=== PATIENT | female | born 1935 | race Caucasian/White ===

== ENCOUNTER → 2016-09-14 | Outpatient (CLI) | payer MEDICARE, OTHER, MEDICAID ==
[~2016-09-14] MED LIST: ALIR1INJ3 SC; BENA20TA4 PO; CHOL400T19 PO; CYAN500L3 PO; FURO40TA PO; GABA300C8 PO; MECL12.554 PO; METO-158 PO; MULTTAB99 PO; NITR0.4S29 SL; NOR5T PO; OMEP20CA5 OR; POTA20TA53 PO; PREMARIN; RIOC1TAB5 PO; SIMV20TA90; VITA400C49 PO; WARF5TAB71 PO; ZOLP-158
[2016-09-14 09:45] VITALS: BP 119/79
[2016-09-14 12:21] LABS: INR 2.3 (0.7-1.3)
[2016-09-14 13:37] LABS: Potassium 4.6 mmol/L (3.5-5.1)
== END | disposition home or self-care (01) ==
LOC: CHF HDHVI 09:11
PROVIDERS: ATTEND Internal Medicine Cardiovascular Disease
DX: I50.9 Heart failure, unspecified (principal); Z79.899 Other long term (current) drug therapy
CPT/HCPCS: 36415; 82565; 84132; 84520; 85610; 93701; G0463

== ENCOUNTER → 2016-10-05 | Outpatient (CLI) | payer MEDICARE, OTHER, MEDICAID ==
[~2016-10-05] MED LIST changes: +CYANOCOBALAMIN (B-12) 1000 MCG/1 ML VIAL IM ONE; +CYANOCOBALAMIN (B-12) 1000 MCG/1 ML VIAL ONE
[2016-10-05 08:35] VITALS: BP 130/72
[2016-10-05 09:35] VITALS: BP 124/69
[2016-10-05 12:22] LABS: INR 1.9 (0.7-1.3); Prothrombin Time 23.2 sec (9.0-12.0)
[2016-10-05 12:42] LABS: BUN/Creatinine Ratio 25.3; Calcium 9.4 mg/dL (8.5-10.1); Magnesium 2.3 mg/dL (1.6-2.6); Potassium 4.4 mmol/L (3.5-5.1)
== END | disposition home or self-care (01) ==
LOC: CHF HDHVI 08:35
PROVIDERS: ATTEND Internal Medicine Cardiovascular Disease
DX: I10 Essential (primary) hypertension (principal); E83.40 Disorders of magnesium metabolism, unspecified; E55.9 Vitamin D deficiency, unspecified
CPT/HCPCS: 36415; 80048; 82306; 83735; 85610; 93701; 96372; G0463

== ENCOUNTER → 2016-10-12 | Outpatient (CLI) | payer MEDICARE, OTHER, MEDICAID ==
[2016-10-12 08:30] VITALS: BP 131/74
[2016-10-12 08:43] VITALS: BP 135/64
[2016-10-12 09:47] LABS: INR 2.2 (0.7-1.3); Prothrombin Time 26.9 sec (9.0-12.0)
== END | disposition home or self-care (01) ==
LOC: CHF HDHVI 08:28
PROVIDERS: ATTEND Internal Medicine Cardiovascular Disease
DX: I50.23 Acute on chronic systolic (congestive) heart failure (principal); I10 Essential (primary) hypertension; D64.9 Anemia, unspecified; R79.1 Abnormal coagulation profile
CPT/HCPCS: 85610; 96372; G0463; J3420

== ENCOUNTER → 2016-10-26 | Outpatient (CLI) | payer MEDICARE, OTHER, MEDICAID ==
[2016-10-26 08:30] VITALS: BP 122/89
[2016-10-26 09:17] VITALS: BP 103/61
[2016-10-26 11:57] LABS: INR 2.2 (0.7-1.3); Prothrombin Time 26.6 sec (9.0-12.0)
== END | disposition home or self-care (01) ==
LOC: CHF HDHVI 08:36
PROVIDERS: ATTEND Internal Medicine Cardiovascular Disease
DX: I11.0 Hypertensive heart disease with heart failure (principal); I50.23 Acute on chronic systolic (congestive) heart failure; I10 Essential (primary) hypertension; D64.9 Anemia, unspecified; I48.91 Unspecified atrial fibrillation; R79.1 Abnormal coagulation profile
CPT/HCPCS: 85610; 93701; 96372; G0463; J3420

== ENCOUNTER → 2016-11-21 | Outpatient (CLI) | payer MEDICARE, OTHER, MEDICAID ==
[~2016-11-21] VITALS: Ht 30.5 cm; Wt 0.5 kg
[~2016-11-21] MED LIST changes: +KETOROLAC TROMETH 60MG/2ML VIAL IM ONE
[2016-11-21 09:16] LABS: INR 2.4 (0.7-1.3); Prothrombin Time 28.4 sec (9.0-12.0)
[2016-11-21 10:00] VITALS: BP 116/55
[2016-11-21 10:07] LABS: INR 2.4 (0.7-1.3); Prothrombin Time 28.4 sec (9.0-12.0)
[2016-11-21 12:28] LABS: Basophils # (auto) 0 uL; Basophils % (auto) 0.2 % (0.0-2.0); Eosinophils # (auto) 0.2 uL; Hematocrit 40.5 % (36.0-46.0); Hemoglobin 13.4 g/dL (12.2-16.2); Lymphocytes # (auto) 0.6 uL; Lymphocytes % (auto) 7.7 % (10.0-50.0); Mean Corpuscular Hemoglobin 31.6 pg (28.0-32.0); Mean Corpuscular Hgb Conc. 33.2 g/dL (32.0-36.0); Mean Corpuscular Volume 95.2 fL (80.0-100.0); Mean Platelet Volume 8.5 fL (7.4-10.4); Monocytes # (auto) 0.4 uL; Monocytes % (auto) 5.3 % (0.0-12.0); Neutrophils % (auto) 84.8 % (37.0-80.0); Platelet Count (auto) 324 10^3/uL (140-450); Red Cell Distribution Width 15.9 % (11.6-16.0); White Blood Cell 8.2 10^3/uL (4.4-10.8)
[2016-11-21 12:47] LABS: BUN/Creatinine Ratio 23.4; Magnesium 2.3 mg/dL (1.6-2.6); Potassium 4.5 mmol/L (3.5-5.1)
== END | disposition home or self-care (01) ==
LOC: CHF HDHVI 08:47
PROVIDERS: ATTEND Internal Medicine Cardiovascular Disease
DX: I10 Essential (primary) hypertension (principal); E83.42 Hypomagnesemia; D64.9 Anemia, unspecified
CPT/HCPCS: 36415; 80048; 82306; 83735; 85025; 85610; 96372; G0463; J1885

== ENCOUNTER → 2016-12-21 | Outpatient (CLI) | payer MEDICARE, OTHER, MEDICAID ==
[2016-12-21 09:52] VITALS: BP 101/63
[2016-12-21 10:32] LABS: INR 1.8 (0.7-1.3)
[2016-12-21 12:37] LABS: Basophils # (auto) 0 uL; Basophils % (auto) 0.6 % (0.0-2.0); Eosinophils # (auto) 0.1 uL; Eosinophils % (auto) 1.8 % (0.0-7.0); Hematocrit 42.8 % (36.0-46.0); Hemoglobin 13.9 g/dL (12.2-16.2); Lymphocytes # (auto) 0.7 uL; Lymphocytes % (auto) 9.8 % (10.0-50.0); Mean Corpuscular Hemoglobin 31.4 pg (28.0-32.0); Mean Corpuscular Hgb Conc. 32.5 g/dL (32.0-36.0); Mean Corpuscular Volume 96.8 fL (80.0-100.0); Mean Platelet Volume 9.7 fL (7.4-10.4); Monocytes # (auto) 0.4 uL; Neutrophils # (auto) 5.9 uL; Neutrophils % (auto) 81.8 % (37.0-80.0); Platelet Count (auto) 206 10^3/uL (140-450); Red Cell Distribution Width 16.9 % (11.6-16.0); White Blood Cell 7.3 10^3/uL (4.4-10.8)
[2016-12-21 13:21] LABS: Potassium 4.4 mmol/L (3.5-5.1)
== END | disposition home or self-care (01) ==
LOC: CHF HDHVI 08:57
PROVIDERS: ATTEND Internal Medicine Cardiovascular Disease
DX: I10 Essential (primary) hypertension (principal); R94.4 Abnormal results of kidney function studies; D64.9 Anemia, unspecified
CPT/HCPCS: 36415; 82565; 84132; 84520; 85025; 85610; 96372; G0463; J1885

== ENCOUNTER → 2017-01-04 | Outpatient (CLI) | payer MEDICARE, OTHER, MEDICAID ==
[~2017-01-04] VITALS: Ht 171.4 cm; Wt 100.2 kg
[~2017-01-04] MED LIST changes: -KETOROLAC TROMETH 60MG/2ML VIAL IM ONE; +MAGN400T23 PO; +SOTA80TA PO
[2017-01-04 08:55] VITALS: BP 132/68
[2017-01-04 09:55] VITALS: BP 106/68
[2017-01-05 07:37] LABS: INR 1.9 (0.7-1.3); Prothrombin Time 22.7 sec (9.0-12.0)
== END | disposition home or self-care (01) ==
LOC: CHF HDHVI 09:00
PROVIDERS: ATTEND Internal Medicine Cardiovascular Disease
DX: I50.9 Heart failure, unspecified (principal); I27.2 Other secondary pulmonary hypertension; D64.9 Anemia, unspecified; I48.91 Unspecified atrial fibrillation
CPT/HCPCS: 85610; 93701; 96372; G0463; J3420

== ENCOUNTER → 2017-01-05 | Outpatient (CLI) | payer MEDICARE, OTHER, MEDICAID ==
[~2017-01-05] MED LIST changes: -CYANOCOBALAMIN (B-12) 1000 MCG/1 ML VIAL IM ONE; -CYANOCOBALAMIN (B-12) 1000 MCG/1 ML VIAL ONE
[2017-01-05 10:25] VITALS: BP 107/50
[2017-01-05 10:45] VITALS: BP 120/50
[2017-01-05 12:29] LABS: Basophils # (auto) 0 uL; Basophils % (auto) 0.4 % (0.0-2.0); Eosinophils # (auto) 0.1 uL; Eosinophils % (auto) 1.7 % (0.0-7.0); Hematocrit 41.3 % (36.0-46.0); Hemoglobin 13.8 g/dL (12.2-16.2); Lymphocytes # (auto) 0.7 uL; Lymphocytes % (auto) 9.7 % (10.0-50.0); Mean Corpuscular Hemoglobin 31.7 pg (28.0-32.0); Mean Corpuscular Hgb Conc. 33.4 g/dL (32.0-36.0); Mean Corpuscular Volume 95.1 fL (80.0-100.0); Mean Platelet Volume 9.3 fL (7.4-10.4); Monocytes # (auto) 0.5 uL; Monocytes % (auto) 6.6 % (0.0-12.0); Neutrophils # (auto) 6.1 uL; Neutrophils % (auto) 81.6 % (37.0-80.0); Platelet Count (auto) 256 10^3/uL (140-450); Red Cell Distribution Width 16.4 % (11.6-16.0); White Blood Cell 7.5 10^3/uL (4.4-10.8)
[2017-01-05 12:47] LABS: Partial Thromboplastin Time 34.3 sec (22.64-33.71)
[2017-01-05 12:48] LABS: INR 1.77 (0.9-1.15); Prothrombin Time 19.1 sec (9.37-12.3)
[2017-01-05 12:54] LABS: BUN/Creatinine Ratio 20.2; Calcium 9.3 mg/dL (8.5-10.1); Potassium 3.9 mmol/L (3.5-5.1)
== END | disposition home or self-care (01) ==
LOC: Rad HDHVI 09:48
PROVIDERS: ATTEND Internal Medicine Cardiovascular Disease
DX: I10 Essential (primary) hypertension (principal); D64.9 Anemia, unspecified; R79.1 Abnormal coagulation profile; Z01.812 Encounter for preprocedural laboratory examination
CPT/HCPCS: 36415; 71020; 80048; 85025; 85610; 85730; 93005; G0463

== ENCOUNTER → 2017-01-09 | Day surgery (SDC) | payer MEDICARE, OTHER, MEDICAID ==
[~2017-01-09] MED LIST changes: +BENA20TA14 PO; -BENA20TA4 PO; +GABA-497 PO; -GABA300C8 PO; +HYDR-4663 PO; +MIDAZOLAM HCL 1MG/1ML-2 ML VIAL IV ONE; +MIDAZOLAM HCL 1MG/1ML-2 ML VIAL ONE; +NALOXONE HCL 0.4 MG/ML VIAL IV ONE; +NALOXONE HCL 0.4 MG/ML VIAL ONE; -NOR5T PO; -OMEP20CA5 OR; +OMEP20CA74 OR; +RIOC1TAB9 PO; +fentaNYL CITRATE 100 MCG/2 ML VL IV ONE; +fentaNYL CITRATE 100 MCG/2 ML VL ONE
== END | disposition home or self-care (01) ==
LOC: CATH 07:19
PROVIDERS: ATTEND Internal Medicine Cardiovascular Disease
DX: I48.91 Unspecified atrial fibrillation (principal); I50.30 Unspecified diastolic (congestive) heart failure; T82.897A Other specified complication of cardiac prosthetic devices, implants and grafts, initial encounter; Z90.710 Acquired absence of both cervix and uterus; Z90.721 Acquired absence of ovaries, unilateral; Z95.0 Presence of cardiac pacemaker
CPT/HCPCS: 92960; J2250; J3010; J7030

== ENCOUNTER → 2017-01-16 | Outpatient (CLI) | payer MEDICARE, OTHER, MEDICAID ==
[~2017-01-16] MED LIST changes: -BENA20TA14 PO; +BENA20TA4 PO; +CYANOCOBALAMIN (B-12) 1000 MCG/1 ML VIAL IM ONE; +CYANOCOBALAMIN (B-12) 1000 MCG/1 ML VIAL ONE; -GABA-497 PO; +GABA300C8 PO; -HYDR-4663 PO; -MIDAZOLAM HCL 1MG/1ML-2 ML VIAL IV ONE; -MIDAZOLAM HCL 1MG/1ML-2 ML VIAL ONE; -NALOXONE HCL 0.4 MG/ML VIAL IV ONE; -NALOXONE HCL 0.4 MG/ML VIAL ONE; +NOR5T PO; +OMEP20CA5 OR; -OMEP20CA74 OR; -RIOC1TAB9 PO; -fentaNYL CITRATE 100 MCG/2 ML VL IV ONE; -fentaNYL CITRATE 100 MCG/2 ML VL ONE
[2017-01-16 09:15] VITALS: BP 99/56
[2017-01-16 10:45] VITALS: BP 123/62
[2017-01-16 10:56] LABS: INR 1.8 (0.7-1.3); Prothrombin Time 21.3 sec (9.0-12.0)
[2017-01-16 12:37] LABS: Magnesium 2.5 mg/dL (1.6-2.6); Potassium 4.7 mmol/L (3.5-5.1)
== END | disposition home or self-care (01) ==
LOC: CHF HDHVI 08:58
PROVIDERS: ATTEND Internal Medicine Cardiovascular Disease
DX: E87.6 Hypokalemia (principal); R94.4 Abnormal results of kidney function studies; E83.42 Hypomagnesemia
CPT/HCPCS: 36415; 71020; 82565; 83735; 84132; 84520; 85610; 96372; G0463

== ENCOUNTER → 2017-01-17 | Outpatient (CLI) | payer MEDICARE, OTHER, MEDICAID ==
[~2017-01-17] MED LIST changes: -CYANOCOBALAMIN (B-12) 1000 MCG/1 ML VIAL IM ONE; -CYANOCOBALAMIN (B-12) 1000 MCG/1 ML VIAL ONE
[2017-01-17 14:10] VITALS: BP 93/65
[2017-01-17 15:15] VITALS: BP 102/60
== END | disposition home or self-care (01) ==
LOC: CHF HDHVI 14:51
PROVIDERS: ATTEND Internal Medicine Cardiovascular Disease
DX: J44.9 Chronic obstructive pulmonary disease, unspecified (principal); I27.2 Other secondary pulmonary hypertension; R53.83 Other fatigue
CPT/HCPCS: G0463

== ENCOUNTER → 2017-01-31 | Outpatient (CLI) | payer MEDICARE, OTHER, MEDICAID ==
[~2017-01-31] MED LIST changes: +BENA20TA14 PO; -BENA20TA4 PO; +DIG0125T PO; +GABA-497 PO; -GABA300C8 PO; +HYDR-4663 PO; +MACI1TAB2 PO; -NOR5T PO; -OMEP20CA5 OR; +OMEP20CA74 OR; +RIOC1TAB9 PO; +WARF5TAB PO
[2017-01-31 10:50] VITALS: BP 110/80
[2017-01-31 16:47] LABS: Basophils # (auto) 0 uL; Basophils % (auto) 0.4 % (0.0-2.0); Eosinophils # (auto) 0.1 uL; Eosinophils % (auto) 1.7 % (0.0-7.0); Hematocrit 41.1 % (36.0-46.0); Hemoglobin 13.7 g/dL (12.2-16.2); Lymphocytes # (auto) 0.7 uL; Lymphocytes % (auto) 9.1 % (10.0-50.0); Mean Corpuscular Hemoglobin 31.6 pg (28.0-32.0); Mean Corpuscular Hgb Conc. 33.3 g/dL (32.0-36.0); Mean Corpuscular Volume 94.9 fL (80.0-100.0); Monocytes # (auto) 0.5 uL; Neutrophils # (auto) 6.4 uL; Neutrophils % (auto) 81.8 % (37.0-80.0); Platelet Count (auto) 250 10^3/uL (140-450); Red Cell Distribution Width 15.8 % (11.6-16.0); White Blood Cell 7.8 10^3/uL (4.4-10.8)
== END | disposition home or self-care (01) ==
LOC: CHF HDHVI 11:11
PROVIDERS: ATTEND Internal Medicine Cardiovascular Disease
DX: T46.0X6D Underdosing of cardiac-stimulant glycosides and drugs of similar action, subsequent encounter (principal); D64.9 Anemia, unspecified
CPT/HCPCS: 36415; 80162; 85025; G0463

== ENCOUNTER → 2017-02-13 | Outpatient (CLI) | payer MEDICARE, OTHER, MEDICAID ==
[~2017-02-13] MED LIST changes: -DIG0125T PO; -MACI1TAB2 PO; -RIOC1TAB9 PO; -WARF5TAB PO
[2017-02-13 09:32] LABS: INR 2.5 (0.7-1.3); Prothrombin Time 30.3 sec (9.0-12.0)
[2017-02-13 09:40] VITALS: BP 104/53
[2017-02-13 13:02] LABS: BUN/Creatinine Ratio 23.1; Potassium 4.6 mmol/L (3.5-5.1)
== END | disposition home or self-care (01) ==
LOC: CHF HDHVI 08:23
PROVIDERS: ATTEND Internal Medicine Cardiovascular Disease
DX: I11.0 Hypertensive heart disease with heart failure (principal); I48.91 Unspecified atrial fibrillation; I50.9 Heart failure, unspecified; I27.2 Other secondary pulmonary hypertension; J44.9 Chronic obstructive pulmonary disease, unspecified; R53.83 Other fatigue; R06.02 Shortness of breath
CPT/HCPCS: 36415; 80048; 85610; 93005; 93701; 94620; G0463

== ENCOUNTER → 2017-02-20 | Outpatient (CLI) | payer MEDICARE, OTHER, MEDICAID ==
[~2017-02-20] MED LIST changes: +ALBUTEROL SULF 2.5 MG/0.5ML(0.5%) NEB SOLN NEB ONE; +ALBUTEROL SULF 2.5 MG/0.5ML(0.5%) NEB SOLN ONE; +CYANOCOBALAMIN (B-12) 1000 MCG/1 ML VIAL IM ONE; +CYANOCOBALAMIN (B-12) 1000 MCG/1 ML VIAL ONE
[2017-02-20 09:20] VITALS: BP 124/63
== END | disposition home or self-care (01) ==
LOC: CHF HDHVI 08:34
PROVIDERS: ATTEND Internal Medicine Cardiovascular Disease
DX: I50.9 Heart failure, unspecified (principal); J44.9 Chronic obstructive pulmonary disease, unspecified; R53.83 Other fatigue
CPT/HCPCS: 94640; G0463; J3420; 96372

== ENCOUNTER 2017-02-27 10:57 | Inpatient (IN) | payer MEDICARE, OTHER, MEDICAID ==
[~2017-02-27] VITALS: Ht 172.7 cm; Wt 94.8 kg
[~2017-02-27 10:57] MED LIST changes: -ALBUTEROL SULF 2.5 MG/0.5ML(0.5%) NEB SOLN NEB ONE; -ALBUTEROL SULF 2.5 MG/0.5ML(0.5%) NEB SOLN ONE; -CYANOCOBALAMIN (B-12) 1000 MCG/1 ML VIAL IM ONE; -CYANOCOBALAMIN (B-12) 1000 MCG/1 ML VIAL ONE
[2017-02-27 12:10] LABS: Basophils # (auto) 0 uL; CONDITION Y; Eosinophils # (auto) 0.1 uL; Eosinophils % (auto) 1.5 % (0.0-7.0); Hematocrit 39.6 % (36.0-46.0); Hemoglobin 13.1 g/dL (12.2-16.2); Lymphocytes # (auto) 0.6 uL; Mean Corpuscular Hemoglobin 31.9 pg (28.0-32.0); Mean Corpuscular Hgb Conc. 33.1 g/dL (32.0-36.0); Mean Corpuscular Volume 96.3 fL (80.0-100.0); Mean Platelet Volume 7.9 fL (7.4-10.4); Monocytes # (auto) 0.4 uL; Monocytes % (auto) 6.9 % (0.0-12.0); Neutrophils # (auto) 5.4 uL; Neutrophils % (auto) 82.6 % (37.0-80.0); Platelet Count (auto) 242 10^3/uL (140-450); Red Cell Distribution Width 16.4 % (11.6-16.0); White Blood Cell 6.5 10^3/uL (4.4-10.8)
[2017-02-27] MEDS ORDERED: ONDANSETRON HCL 4 MG/2 ML VIAL IV ONE (12:15)
[2017-02-27] MEDS ORDERED: ASPirin 81 mg TAB PO ONE (12:15)
[2017-02-27] MEDS ORDERED: MORPHINE SULFATE 4 MG/ML SYRG IV ONE (12:15)
[2017-02-27 12:37] LABS: BUN/Creatinine Ratio 28.1; Bilirubin, Total 0.6 mg/dL (0.2-1.0); Calcium 9.1 mg/dL (8.5-10.1); Magnesium 2.3 mg/dL (1.6-2.6); Potassium 4.1 mmol/L (3.5-5.1)
[2017-02-27 14:20] LABS: B-Type Natriuretic Peptide 144.78 pg/mL (0-100)
[2017-02-27 14:21] LABS: Temperature: 22.5 C (20.0-25.0)
[2017-02-27] MEDS ORDERED: methylPREDNISolone SOD SUCC 125 MG/2 ML VL IV ONE (15:15)
[2017-02-27] MEDS ORDERED: ALBUTEROL SULF 2.5 MG/0.5ML(0.5%) NEB SOLN NEB ONE (15:15)
[2017-02-27] MEDS ORDERED: IPRATROPIUM BROM 0.5 MG/2.5ML INH SOL NEB ONE (15:15)
[2017-02-27] MEDS ORDERED: GABA-497 PO (21:30)
[2017-02-27] MEDS ORDERED: RIOC1TAB9 PO (21:30)
[2017-02-27] MEDS ORDERED: MORPHINE SULFATE 4 MG/ML SYRG IV PRN (21:45)
[2017-02-27] MEDS ORDERED: NITROGLYCERIN 0.4 MG SL TAB SL PRN (21:45)
[2017-02-27] MEDS: SOTALOL HCL 80 MG TAB PO SCH (22:00)
[2017-02-27] MEDS: Riociguat Base (Adempas) 2.5 MG PO SCH (22:00)
[2017-02-27] MEDS: GABAPENTIN 300 MG CAP PO SCH (22:21)
[2017-02-27] MEDS: MAGNESIUM OXIDE 400 MG TAB PO SCH (22:21)
[2017-02-27] MEDS: METOPROLOL TARTRATE 50 MG TAB PO SCH (22:21)
[2017-02-27] MEDS ORDERED: FUROSEMIDE INJECTION 10 ML ONE (22:22)
[2017-02-27] MEDS: DOBUTamine 1000MCG/ML 250 ML IV SCH (22:41)
[2017-02-27] MEDS: FUROSEMIDE INJECTION 100 MG in SODIUM CHL 0.9% 90 ML IV SCH (23:05)
[2017-02-28 01:41] VITALS: BP 129/74
[2017-02-28 02:00] VITALS: BP 129/74
[2017-02-28 05:00] VITALS: BP 133/53
[2017-02-28] MEDS: DOBUTamine 1000MCG/ML 250 ML IV SCH ×3 (05:54→23:51)
[2017-02-28] MEDS: Riociguat Base (Adempas) 2.5 MG PO SCH ×3 (06:00→21:45)
[2017-02-28 07:28] LABS: INR 2.45 (0.9-1.15); Partial Thromboplastin Time 38.3 sec (22.64-33.71)
[2017-02-28 07:31] LABS: Prothrombin Time 26.9 sec (9.37-12.3)
[2017-02-28 09:00] VITALS: BP 121/58
[2017-02-28] MEDS: GABAPENTIN 300 MG CAP PO SCH ×2 (09:36→21:39)
[2017-02-28] MEDS: MAGNESIUM OXIDE 400 MG TAB PO SCH ×2 (09:36→21:39)
[2017-02-28] MEDS: SOTALOL HCL 80 MG TAB PO SCH ×2 (09:37→21:39)
[2017-02-28] MEDS: MULTIPLE VITAMIN TAB PO SCH (09:38)
[2017-02-28] MEDS: FUROSEMIDE INJECTION 100 MG in SODIUM CHL 0.9% 90 ML IV SCH ×2 (09:38→17:22)
[2017-02-28] MEDS: PANTOPRAZOLE 40 MG TAB PO SCH (09:39)
[2017-02-28] MEDS: METOPROLOL TARTRATE 50 MG TAB PO SCH ×2 (09:40→21:40)
[2017-02-28] MEDS: POTASSIUM CHL 20 Meq TABLET PO SCH (09:40)
[2017-02-28] MEDS: MECLIZINE HCL 25 MG TAB PO SCH (09:40)
[2017-02-28] MEDS: FUROSEMIDE 40 MG TAB PO SCH (09:44)
[2017-02-28] MEDS ORDERED: OMEPRAZOLE 20MG/10ML ORAL SUSP PO SCH (10:00)
[2017-02-28] MEDS ORDERED: ZOLPIDEM TARTRATE 5 MG TAB PO SCH (10:00)
[2017-02-28] MEDS ORDERED: WARFARIN SODIUM 5 MG TAB PO SCH (10:00)
[2017-02-28 13:00] VITALS: BP 128/71
[2017-02-28 16:47] VITALS: BP 97/43
[2017-02-28] MEDS: ATORVASTATIN 20 MG TAB PO SCH (21:39)
[2017-02-28] MEDS: ZOLPIDEM TARTRATE 5 MG TAB PO SCH (21:39)
[2017-02-28] MEDS: WARFARIN SODIUM 5 MG TAB PO SCH (21:43)
[2017-02-28] MEDS ORDERED: ALIROCUMAB 75 MG SC SCH (22:00)
[2017-03-01] MEDS: FUROSEMIDE INJECTION 100 MG in SODIUM CHL 0.9% 90 ML IV SCH ×3 (03:07→23:45)
[2017-03-01 05:00] VITALS: BP 117/56
[2017-03-01 06:52] LABS: Partial Thromboplastin Time 33.9 sec (22.64-33.71)
[2017-03-01 07:08] LABS: BUN/Creatinine Ratio 27.3
[2017-03-01 07:16] LABS: Potassium 2.8 mmol/L (3.5-5.1); Prothrombin Time 21.9 sec (9.37-12.3)
[2017-03-01 07:30] VITALS: BP 110/64
[2017-03-01 08:56] VITALS: BP 110/64
[2017-03-01] MEDS: PANTOPRAZOLE 40 MG TAB PO SCH (09:06)
[2017-03-01] MEDS: DOBUTamine 1000MCG/ML 250 ML IV SCH ×2 (09:08→16:50)
[2017-03-01] MEDS: MAGNESIUM OXIDE 400 MG TAB PO SCH ×2 (09:09→21:38)
[2017-03-01] MEDS: MECLIZINE HCL 25 MG TAB PO SCH (09:09)
[2017-03-01] MEDS: GABAPENTIN 300 MG CAP PO SCH ×2 (09:09→21:38)
[2017-03-01] MEDS: METOPROLOL TARTRATE 50 MG TAB PO SCH ×2 (09:10→21:38)
[2017-03-01] MEDS: POTASSIUM CHL 20 Meq TABLET PO SCH ×4 (09:10→16:45)
[2017-03-01] MEDS: MULTIPLE VITAMIN TAB PO SCH (09:10)
[2017-03-01] MEDS: SOTALOL HCL 80 MG TAB PO SCH ×2 (09:10→21:39)
[2017-03-01] MEDS: FUROSEMIDE 40 MG TAB PO SCH (09:11)
[2017-03-01 13:00] VITALS: BP_SYST 115; BP_SYST 131; BP_DIAS 52; BP_DIAS 54
[2017-03-01 16:31] VITALS: BP 132/62
[2017-03-01] MEDS: Riociguat Base (Adempas) 2.5 MG PO SCH ×2 (16:48→21:39)
[2017-03-01] MEDS: ATORVASTATIN 20 MG TAB PO SCH (21:30)
[2017-03-01] MEDS: ZOLPIDEM TARTRATE 5 MG TAB PO SCH (21:38)
[2017-03-01] MEDS: WARFARIN SODIUM 5 MG TAB PO SCH (21:40)
[2017-03-01 22:00] VITALS: BP 110/56
[2017-03-02] VITALS (7 sets, daily range): BP systolic 95–122; BP diastolic 45–84
[2017-03-02] MEDS: DOBUTamine 1000MCG/ML 250 ML IV SCH ×3 (01:47→18:01)
[2017-03-02] MEDS: Riociguat Base (Adempas) 2.5 MG PO SCH ×3 (06:11→22:27)
[2017-03-02 08:01] LABS: BUN/Creatinine Ratio 26.8; Calcium 9.1 mg/dL (8.5-10.1); Potassium 3.4 mmol/L (3.5-5.1)
[2017-03-02 08:22] LABS: INR 2.34 (0.9-1.15); Partial Thromboplastin Time 36.4 sec (22.64-33.71)
[2017-03-02 08:33] LABS: Prothrombin Time 25.7 sec (9.37-12.3)
[2017-03-02] MEDS: FUROSEMIDE 40 MG TAB PO SCH (10:00)
[2017-03-02] MEDS: SOTALOL HCL 80 MG TAB PO SCH ×2 (10:03→22:29)
[2017-03-02] MEDS: MULTIPLE VITAMIN TAB PO SCH (10:04)
[2017-03-02] MEDS: GABAPENTIN 300 MG CAP PO SCH ×2 (10:04→22:30)
[2017-03-02] MEDS: PANTOPRAZOLE 40 MG TAB PO SCH (10:04)
[2017-03-02] MEDS: MECLIZINE HCL 25 MG TAB PO SCH (10:04)
[2017-03-02] MEDS: MAGNESIUM OXIDE 400 MG TAB PO SCH ×2 (10:04→22:29)
[2017-03-02] MEDS: METOPROLOL TARTRATE 50 MG TAB PO SCH ×2 (10:04→20:39)
[2017-03-02] MEDS ORDERED: POTASSIUM CHL 20 Meq TABLET PO ONE ×3 (11:00→13:29)
[2017-03-02] MEDS: POTASSIUM CHL 20 Meq TABLET PO SCH ×4 (11:08→19:37)
[2017-03-02] MEDS: FUROSEMIDE INJECTION 100 MG in SODIUM CHL 0.9% 90 ML IV SCH ×2 (11:09→16:36)
[2017-03-02] MEDS: HYDROcodone-ACET 5/325MG TAB PO PRN (11:23)
[2017-03-02] MEDS: WARFARIN SODIUM 5 MG TAB PO SCH (22:28)
[2017-03-02] MEDS: ATORVASTATIN 20 MG TAB PO SCH (22:29)
[2017-03-02] MEDS: ZOLPIDEM TARTRATE 5 MG TAB PO SCH (22:30)
[2017-03-03] MEDS: DOBUTamine 1000MCG/ML 250 ML IV SCH ×3 (02:52→22:26)
[2017-03-03] MEDS: FUROSEMIDE INJECTION 100 MG in SODIUM CHL 0.9% 90 ML IV SCH ×3 (02:56→22:28)
[2017-03-03 05:00] VITALS: BP 103/46
[2017-03-03] MEDS: Riociguat Base (Adempas) 2.5 MG PO SCH ×3 (05:58→22:24)
[2017-03-03 06:33] LABS: INR 2.49 (0.9-1.15); Partial Thromboplastin Time 39.6 sec (22.64-33.71)
[2017-03-03 06:39] LABS: Prothrombin Time 27.4 sec (9.37-12.3)
[2017-03-03 06:42] LABS: BUN/Creatinine Ratio 25.6; Calcium 8.8 mg/dL (8.5-10.1); Potassium 3.1 mmol/L (3.5-5.1)
[2017-03-03 09:00] VITALS: BP 108/52
[2017-03-03] MEDS: METOPROLOL TARTRATE 50 MG TAB PO SCH ×2 (10:00→22:00)
[2017-03-03] MEDS: MECLIZINE HCL 25 MG TAB PO SCH (11:08)
[2017-03-03] MEDS: GABAPENTIN 300 MG CAP PO SCH ×2 (11:11→22:25)
[2017-03-03] MEDS: MULTIPLE VITAMIN TAB PO SCH (11:11)
[2017-03-03] MEDS: SOTALOL HCL 80 MG TAB PO SCH ×2 (11:11→22:24)
[2017-03-03] MEDS: MAGNESIUM OXIDE 400 MG TAB PO SCH ×2 (11:11→22:24)
[2017-03-03] MEDS: PANTOPRAZOLE 40 MG TAB PO SCH (11:11)
[2017-03-03] MEDS ORDERED: POTASSIUM CHL 20 Meq TABLET PO ONE ×3 (11:45→14:19)
[2017-03-03] MEDS: POTASSIUM CHL 20 Meq TABLET PO SCH (11:57)
[2017-03-03 13:00] VITALS: BP 122/62
[2017-03-03 17:00] VITALS: BP 109/71
[2017-03-03 22:01] VITALS: BP 107/60
[2017-03-03] MEDS: ZOLPIDEM TARTRATE 5 MG TAB PO SCH (22:24)
[2017-03-03] MEDS: ATORVASTATIN 20 MG TAB PO SCH (22:25)
[2017-03-03] MEDS: WARFARIN SODIUM 5 MG TAB PO SCH (22:29)
[2017-03-03 23:45] VITALS: BP 145/65
[2017-03-04 04:44] VITALS: BP 120/55
[2017-03-04] MEDS: DOBUTamine 1000MCG/ML 250 ML IV SCH ×4 (05:21→22:00)
[2017-03-04] MEDS: Riociguat Base (Adempas) 2.5 MG PO SCH ×3 (05:34→21:53)
[2017-03-04 06:21] LABS: Basophils # (auto) 0 uL; Basophils % (auto) 0.1 % (0.0-2.0); CONDITION Y; Eosinophils # (auto) 0.1 uL; Eosinophils % (auto) 1.8 % (0.0-7.0); Hematocrit 38.4 % (36.0-46.0); Lymphocytes # (auto) 0.8 uL; Lymphocytes % (auto) 11.2 % (10.0-50.0); Mean Corpuscular Hemoglobin 32.1 pg (28.0-32.0); Mean Corpuscular Hgb Conc. 33.7 g/dL (32.0-36.0); Mean Corpuscular Volume 95.3 fL (80.0-100.0); Mean Platelet Volume 8.8 fL (7.4-10.4); Monocytes # (auto) 0.7 uL; Monocytes % (auto) 9.4 % (0.0-12.0); Neutrophils # (auto) 5.6 uL; Neutrophils % (auto) 77.5 % (37.0-80.0); Platelet Count (auto) 206 10^3/uL (140-450); Red Cell Distribution Width 15.7 % (11.6-16.0); White Blood Cell 7.3 10^3/uL (4.4-10.8)
[2017-03-04 06:34] LABS: INR 2.72 (0.9-1.15); Partial Thromboplastin Time 40.3 sec (22.64-33.71)
[2017-03-04] MEDS: FUROSEMIDE INJECTION 100 MG in SODIUM CHL 0.9% 90 ML IV SCH ×2 (06:55→17:31)
[2017-03-04 07:03] LABS: BUN/Creatinine Ratio 23.5; Calcium 8.8 mg/dL (8.5-10.1); Potassium 3.1 mmol/L (3.5-5.1)
[2017-03-04 09:00] VITALS: BP 121/61
[2017-03-04] MEDS: METOPROLOL TARTRATE 50 MG TAB PO SCH ×2 (10:18→21:55)
[2017-03-04] MEDS: GABAPENTIN 300 MG CAP PO SCH ×2 (10:18→21:54)
[2017-03-04] MEDS: MECLIZINE HCL 25 MG TAB PO SCH (10:18)
[2017-03-04] MEDS: SOTALOL HCL 80 MG TAB PO SCH ×2 (10:18→21:54)
[2017-03-04] MEDS: PANTOPRAZOLE 40 MG TAB PO SCH (10:18)
[2017-03-04] MEDS: MULTIPLE VITAMIN TAB PO SCH (10:19)
[2017-03-04] MEDS: MAGNESIUM OXIDE 400 MG TAB PO SCH ×2 (10:19→21:55)
[2017-03-04] MEDS: POTASSIUM CHL 20 Meq TABLET PO SCH (12:44)
[2017-03-04 13:00] VITALS: BP 101/57
[2017-03-04] MEDS: HYDROcodone-ACET 5/325MG TAB PO PRN (21:53)
[2017-03-04] MEDS: ZOLPIDEM TARTRATE 5 MG TAB PO SCH (21:53)
[2017-03-04] MEDS: ATORVASTATIN 20 MG TAB PO SCH (21:56)
[2017-03-04 21:57] VITALS: BP 106/62
[2017-03-04] MEDS: WARFARIN SODIUM 5 MG TAB PO SCH (21:59)
[2017-03-05] VITALS (7 sets, daily range): BP systolic 96–130; BP diastolic 46–84
[2017-03-05] MEDS: FUROSEMIDE INJECTION 100 MG in SODIUM CHL 0.9% 90 ML IV SCH ×2 (04:46→14:27)
[2017-03-05] MEDS: Riociguat Base (Adempas) 2.5 MG PO SCH ×3 (06:21→22:33)
[2017-03-05] MEDS: DOBUTamine 1000MCG/ML 250 ML IV SCH ×2 (06:44→14:42)
[2017-03-05 07:46] LABS: INR 2.84 (0.9-1.15); Partial Thromboplastin Time 40.9 sec (22.64-33.71)
[2017-03-05 07:47] LABS: Prothrombin Time 31.3 sec (9.37-12.3)
[2017-03-05] MEDS: PANTOPRAZOLE 40 MG TAB PO SCH (09:52)
[2017-03-05] MEDS: MAGNESIUM OXIDE 400 MG TAB PO SCH ×2 (09:52→22:35)
[2017-03-05] MEDS: GABAPENTIN 300 MG CAP PO SCH ×2 (09:52→22:35)
[2017-03-05] MEDS: MECLIZINE HCL 25 MG TAB PO SCH (09:52)
[2017-03-05] MEDS: METOPROLOL TARTRATE 50 MG TAB PO SCH ×2 (09:52→22:34)
[2017-03-05] MEDS: MULTIPLE VITAMIN TAB PO SCH (09:52)
[2017-03-05] MEDS: SOTALOL HCL 80 MG TAB PO SCH ×2 (09:53→22:34)
[2017-03-05] MEDS: POTASSIUM CHL 20 Meq TABLET PO SCH (09:53)
[2017-03-05] MEDS: HYDROcodone-ACET 5/325MG TAB PO PRN (14:25)
[2017-03-05] MEDS: ZOLPIDEM TARTRATE 5 MG TAB PO SCH (22:33)
[2017-03-05] MEDS: ATORVASTATIN 20 MG TAB PO SCH (22:34)
[2017-03-05] MEDS: WARFARIN SODIUM 5 MG TAB PO SCH (22:36)
[2017-03-06 05:00] VITALS: BP 111/57
[2017-03-06] MEDS: Riociguat Base (Adempas) 2.5 MG PO SCH (06:11)
[2017-03-06 06:23] LABS: INR 2.73 (0.9-1.15); Partial Thromboplastin Time 42.7 sec (22.64-33.71); Prothrombin Time 30.1 sec (9.37-12.3)
== END 2017-03-06 08:45 | disposition home or self-care (01) | DRG 291 ==
LOC: EDBD 10:57 → ER 10:57 → TELE 10:58 → TELE-EAST 02-28 00:54
PROVIDERS: ADMIT Internal Medicine Cardiovascular Disease; ATTEND Internal Medicine Cardiovascular Disease
DX: I13.0 Hypertensive heart and chronic kidney disease with heart failure and stage 1 through stage 4 chronic kidney disease, or unspecified chronic kidney disease (principal); I50.31 Acute diastolic (congestive) heart failure; N17.9 Acute kidney failure, unspecified; N18.9 Chronic kidney disease, unspecified; J44.9 Chronic obstructive pulmonary disease, unspecified; K21.9 Gastro-esophageal reflux disease without esophagitis; E78.00 Pure hypercholesterolemia, unspecified; E87.6 Hypokalemia; I25.10 Atherosclerotic heart disease of native coronary artery without angina pectoris; I27.2 Other secondary pulmonary hypertension; I48.91 Unspecified atrial fibrillation; K44.9 Diaphragmatic hernia without obstruction or gangrene; M19.90 Unspecified osteoarthritis, unspecified site; L89.151 Pressure ulcer of sacral region, stage 1; E78.5 Hyperlipidemia, unspecified; Z79.01 Long term (current) use of anticoagulants; Z79.899 Other long term (current) drug therapy; Z88.0 Allergy status to penicillin; Z99.81 Dependence on supplemental oxygen; I25.2 Old myocardial infarction; Z95.1 Presence of aortocoronary bypass graft; Z90.49 Acquired absence of other specified parts of digestive tract; Z90.710 Acquired absence of both cervix and uterus; Z95.0 Presence of cardiac pacemaker
CPT/HCPCS: 36415; 71020; 80048; 80053; 82962; 83735; 83880; 84484; 85025; 85379; 85610; 85730; 87040; 87081; 93005; 94640; 96374; 96375; 97110; 97116; 97163; 97530; 99291; J2405

== ENCOUNTER → 2017-03-14 | Outpatient (CLI) | payer MEDICARE, OTHER, MEDICAID ==
[~2017-03-14] MED LIST changes: -ALIR1INJ3 SC; -BENA20TA14 PO; -CHOL400T19 PO; -CYAN500L3 PO; +DIG0125T PO; +MACI1TAB2 PO; -NITR0.4S29 SL; -PREMARIN; -RIOC1TAB5 PO; +RIOC1TAB9 PO; -VITA400C49 PO; +WARF5TAB PO; -WARF5TAB71 PO; -ZOLP-158
[2017-03-14 12:55] VITALS: BP 119/77
[2017-03-14 16:02] VITALS: BP 117/42
[2017-03-14 17:03] LABS: BUN/Creatinine Ratio 28.8; Bilirubin, Total 0.5 mg/dL (0.2-1.0); Calcium 9.2 mg/dL (8.5-10.1); Potassium 4.6 mmol/L (3.5-5.1); Total Protein 6.9 g/dL (6.4-8.2)
== END | disposition home or self-care (01) ==
LOC: CHF HDHVI 12:54
PROVIDERS: ATTEND Internal Medicine Cardiovascular Disease
DX: I10 Essential (primary) hypertension (principal); T46.0X6D Underdosing of cardiac-stimulant glycosides and drugs of similar action, subsequent encounter; E55.9 Vitamin D deficiency, unspecified; I50.9 Heart failure, unspecified; I25.10 Atherosclerotic heart disease of native coronary artery without angina pectoris; J44.9 Chronic obstructive pulmonary disease, unspecified; G89.29 Other chronic pain; Z99.81 Dependence on supplemental oxygen
CPT/HCPCS: 36415; 80053; 80162; 82306; 93701; G0463

== ENCOUNTER → 2017-03-26 | Outpatient (CLI) | payer MEDICARE, OTHER, MEDICAID ==
[~2017-03-26] MED LIST changes: +CYANOCOBALAMIN (B-12) 1000 MCG/1 ML VIAL IM ONE; +CYANOCOBALAMIN (B-12) 1000 MCG/1 ML VIAL ONE; -DIG0125T PO; -MACI1TAB2 PO; -WARF5TAB PO
[2017-03-26 08:15] VITALS: BP 117/39
[2017-03-26 10:00] VITALS: BP 117/39
[2017-03-26 12:23] LABS: Basophils # (auto) 0 uL; Basophils % (auto) 0.2 % (0.0-2.0); CONDITION Y; Eosinophils # (auto) 0.1 uL; Eosinophils % (auto) 1.3 % (0.0-7.0); Hematocrit 37.2 % (36.0-46.0); Hemoglobin 12.2 g/dL (12.2-16.2); Lymphocytes # (auto) 0.5 uL; Mean Corpuscular Hemoglobin 31.8 pg (28.0-32.0); Mean Corpuscular Hgb Conc. 32.7 g/dL (32.0-36.0); Mean Corpuscular Volume 97.3 fL (80.0-100.0); Mean Platelet Volume 8.6 fL (7.4-10.4); Monocytes # (auto) 0.4 uL; Monocytes % (auto) 7.1 % (0.0-12.0); Neutrophils # (auto) 4.7 uL; Neutrophils % (auto) 82.4 % (37.0-80.0); Platelet Count (auto) 260 10^3/uL (140-450); Red Cell Distribution Width 16.9 % (11.6-16.0); White Blood Cell 5.7 10^3/uL (4.4-10.8)
[2017-03-26 12:52] LABS: Albumin 2.8 g/dL (3.4-5.0); BUN/Creatinine Ratio 28.3; Bilirubin, Total 0.5 mg/dL (0.2-1.0); Calcium 9.6 mg/dL (8.5-10.1); Magnesium 2.2 mg/dL (1.6-2.6); Potassium 4.1 mmol/L (3.5-5.1); Total Protein 6.8 g/dL (6.4-8.2)
== END | disposition home or self-care (01) ==
LOC: CHF HDHVI 08:40
PROVIDERS: ATTEND Internal Medicine Cardiovascular Disease
DX: I27.0 Primary pulmonary hypertension (principal); J44.9 Chronic obstructive pulmonary disease, unspecified; T46.0X6D Underdosing of cardiac-stimulant glycosides and drugs of similar action, subsequent encounter; E83.42 Hypomagnesemia; D64.9 Anemia, unspecified; R53.83 Other fatigue; Z99.81 Dependence on supplemental oxygen
CPT/HCPCS: 36415; 80053; 80162; 83735; 85025; 96372; G0463; J3420; 93005

== ENCOUNTER 2017-04-02 08:30 | Inpatient (IN) | payer MEDICARE, OTHER, MEDICAID ==
[~2017-04-02] VITALS: Ht 172.7 cm; Wt 90.6 kg
[~2017-04-02 08:30] MED LIST changes: -CYANOCOBALAMIN (B-12) 1000 MCG/1 ML VIAL IM ONE; -CYANOCOBALAMIN (B-12) 1000 MCG/1 ML VIAL ONE
[2017-04-02] MEDS ORDERED: FUROSEMIDE 40 MG/4 ML VIAL IV ONE ×2 (09:00→10:30)
[2017-04-02] MEDS ORDERED: LORazepam 0.5 MG TAB PO PRN (10:15)
[2017-04-02] MEDS ORDERED: TEMAZEPAM 15 MG CAP PO PRN (10:15)
[2017-04-02] MEDS ORDERED: NITROGLYCERIN 0.4 MG SL TAB SL PRN (10:15)
[2017-04-02] MEDS ORDERED: PROMETHAZINE HCL 25 MG/ML 1ML IV PRN (10:15)
[2017-04-02] MEDS ORDERED: ACETAMINOPHEN 500 MG TAB PO PRN (10:15)
[2017-04-02] MEDS ORDERED: LACTULOSE 20Gm/30ML SOLN PO PRN (10:15)
[2017-04-02 10:21] LABS: Albumin 2.8 g/dL (3.4-5.0); Anion Gap 9 (5-15); Aspartate Aminotransferase 28 U/L (15-37); BUN/Creatinine Ratio 34.6; Blood Urea Nitrogen 18 mg/dL (7-18); Calcium 9.2 mg/dL (8.5-10.1); Carbon Dioxide 31 mmol/L (21-32); Chloride 102 mmol/L (98-107); GFR African American 145 mL/min; GFR Non-African American 120 mL/min; Glucose 91 mg/dL (74-106); Magnesium 2.4 mg/dL (1.6-2.6); Potassium 4.4 mmol/L (3.5-5.1); Sodium 142 mmol/L (136-145)
[2017-04-02 10:25] LABS: Alkaline Phosphatase 94 U/L (45-117); Bilirubin, Total 0.5 mg/dL (0.2-1.0); Total Protein 6.9 g/dL (6.4-8.2)
[2017-04-02] MEDS ORDERED: PANTOPRAZOLE 40 MG TAB PO ONE (10:30)
[2017-04-02] MEDS ORDERED: POTASSIUM CHL 20 Meq TABLET PO ONE (10:30)
[2017-04-02] MEDS ORDERED: MAGNESIUM OXIDE 400 MG TAB PO ONE (10:30)
[2017-04-02] MEDS ORDERED: NITROGLYCERIN 0.2MG/HR TOPICAL PATCH TD ONE (10:30)
[2017-04-02] MEDS ORDERED: LEVOFLOXACIN 500MG 100 ML IV ONE (10:30)
[2017-04-02] MEDS ORDERED: GABAPENTIN 300 MG CAP PO ONE (10:30)
[2017-04-02] MEDS ORDERED: SOTALOL HCL 80 MG TAB PO ONE (10:30)
[2017-04-02] MEDS ORDERED: ENALAPRIL MALEATE 2.5 MG TAB PO ONE (10:30)
[2017-04-02 10:37] LABS: INR 3.99 (0.9-1.15)
[2017-04-02 10:40] LABS: Prothrombin Time 44.1 sec (9.37-12.3)
[2017-04-02 10:46] LABS: Basophils # (auto) 0 uL; Basophils % (auto) 0.1 % (0.0-2.0); CONDITION Y; Eosinophils # (auto) 0.1 uL; Eosinophils % (auto) 0.8 % (0.0-7.0); Hematocrit 37.5 % (36.0-46.0); Hemoglobin 12.3 g/dL (12.2-16.2); Lymphocytes # (auto) 0.7 uL; Lymphocytes % (auto) 10.5 % (10.0-50.0); Mean Corpuscular Hemoglobin 31.6 pg (28.0-32.0); Mean Corpuscular Hgb Conc. 32.9 g/dL (32.0-36.0); Mean Corpuscular Volume 96.1 fL (80.0-100.0); Mean Platelet Volume 8.6 fL (7.4-10.4); Monocytes # (auto) 0.5 uL; Monocytes % (auto) 7.8 % (0.0-12.0); Neutrophils # (auto) 5.4 uL; Neutrophils % (auto) 80.8 % (37.0-80.0); Platelet Count (auto) 260 10^3/uL (140-450); Red Cell Distribution Width 16.6 % (11.6-16.0); White Blood Cell 6.7 10^3/uL (4.4-10.8)
[2017-04-02 11:12] LABS: Temperature: 20.9 C (20.0-25.0)
[2017-04-02 12:05] VITALS: BP_SYST 128
[2017-04-02] MEDS ORDERED: RIOCIGUAT BASE 2.5 MG PO SCH (14:00)
[2017-04-02] MEDS: ALBUTEROL SULF 2.5 MG/0.5ML(0.5%) NEB SOLN NEB PRN (14:56)
[2017-04-02] MEDS ORDERED: PHYTONADIONE ORAL Susp 10 mg/10ml PO ONE (16:00)
[2017-04-02] MEDS ORDERED: IOHEXOL 300 MG/ML 100ML BOTTLE IJ ONE (16:39)
[2017-04-02] MEDS ORDERED: WARF5TAB PO (17:09)
[2017-04-02] MEDS ORDERED: DIG0125T PO (17:09)
[2017-04-02] MEDS ORDERED: SOTA80TA PO (17:09)
[2017-04-02] MEDS ORDERED: MACI1TAB2 PO (17:09)
[2017-04-02] MEDS ORDERED: HYDR-4663 PO (17:09)
[2017-04-02] MEDS: DOBUTamine 1000MCG/ML 250 ML IV SCH (18:38)
[2017-04-02] MEDS: IPRATROPIUM BROM 0.5 MG/2.5ML INH SOL NEB SCH ×2 (19:38→19:41)
[2017-04-02 22:00] VITALS: BP 133/73
[2017-04-02] MEDS: ATORVASTATIN 20 MG TAB PO SCH (22:01)
[2017-04-02] MEDS: SOTALOL HCL 80 MG TAB PO SCH (22:01)
[2017-04-02] MEDS: MAGNESIUM OXIDE 400 MG TAB PO SCH (22:01)
[2017-04-02] MEDS: GABAPENTIN 300 MG CAP PO SCH (22:02)
[2017-04-03] VITALS (9 sets, daily range): BP systolic 98–117; BP diastolic 47–58
[2017-04-03] MEDS: IPRATROPIUM BROM 0.5 MG/2.5ML INH SOL NEB SCH ×4 (00:55→18:54)
[2017-04-03] MEDS: DOBUTamine 1000MCG/ML 250 ML IV SCH ×3 (03:00→20:45)
[2017-04-03 06:22] LABS: INR 1.95 (0.9-1.15)
[2017-04-03 06:26] LABS: Prothrombin Time 21.4 sec (9.37-12.3)
[2017-04-03 06:39] LABS: B-Type Natriuretic Peptide 61.53 pg/mL (0-100)
[2017-04-03 06:42] LABS: Temperature: 22.7 C (20.0-25.0)
[2017-04-03] MEDS ORDERED: SIMVASTATIN SCH (10:00)
[2017-04-03] MEDS: NITROGLYCERIN 0.2MG/HR TOPICAL PATCH TD SCH (10:00)
[2017-04-03] MEDS: SOTALOL HCL 80 MG TAB PO SCH ×2 (10:00→22:29)
[2017-04-03] MEDS: ENALAPRIL MALEATE 2.5 MG TAB PO SCH (10:00)
[2017-04-03] MEDS: FUROSEMIDE 40 MG/4 ML VIAL IV SCH (10:16)
[2017-04-03] MEDS: GABAPENTIN 300 MG CAP PO SCH ×2 (10:16→22:30)
[2017-04-03] MEDS: LEVOFLOXACIN 500MG 100 ML IV SCH (10:16)
[2017-04-03] MEDS: POTASSIUM CHL 20 Meq TABLET PO SCH (10:16)
[2017-04-03] MEDS: PANTOPRAZOLE 40 MG TAB PO SCH (10:17)
[2017-04-03] MEDS: MAGNESIUM OXIDE 400 MG TAB PO SCH ×2 (10:17→22:30)
[2017-04-03] MEDS: ATORVASTATIN 20 MG TAB PO SCH (22:30)
[2017-04-04] VITALS (7 sets, daily range): BP systolic 96–122; BP diastolic 31–59
[2017-04-04] MEDS: IPRATROPIUM BROM 0.5 MG/2.5ML INH SOL NEB SCH ×4 (00:26→20:09)
[2017-04-04] MEDS: DOBUTamine 1000MCG/ML 250 ML IV SCH ×2 (05:30→15:00)
[2017-04-04 09:43] LABS: INR 1.39 (0.9-1.15); Partial Thromboplastin Time 33.5 sec (22.64-33.71)
[2017-04-04 09:47] LABS: Prothrombin Time 15.2 sec (9.37-12.3)
[2017-04-04] MEDS: ENALAPRIL MALEATE 2.5 MG TAB PO SCH (10:00)
[2017-04-04] MEDS: NITROGLYCERIN 0.2MG/HR TOPICAL PATCH TD SCH (10:00)
[2017-04-04] MEDS: SOTALOL HCL 80 MG TAB PO SCH ×2 (10:00→22:19)
[2017-04-04] MEDS: LEVOFLOXACIN 500MG 100 ML IV SCH (10:13)
[2017-04-04] MEDS: MAGNESIUM OXIDE 400 MG TAB PO SCH ×2 (10:14→22:20)
[2017-04-04] MEDS: PANTOPRAZOLE 40 MG TAB PO SCH (10:14)
[2017-04-04] MEDS: GABAPENTIN 300 MG CAP PO SCH ×2 (10:14→22:22)
[2017-04-04] MEDS: POTASSIUM CHL 20 Meq TABLET PO SCH (10:14)
[2017-04-04] MEDS: FUROSEMIDE 40 MG/4 ML VIAL IV SCH (10:14)
[2017-04-04] MEDS: ALBUTEROL SULF 2.5 MG/0.5ML(0.5%) NEB SOLN NEB PRN (20:09)
[2017-04-04] MEDS: ATORVASTATIN 20 MG TAB PO SCH (22:21)
[2017-04-05] VITALS (7 sets, daily range): BP systolic 91–110; BP diastolic 35–53
[2017-04-05] MEDS: DOBUTamine 1000MCG/ML 250 ML IV SCH ×3 (00:11→19:12)
[2017-04-05] MEDS: MORPHINE SULFATE 4 MG/ML SYRG IV PRN (00:46)
[2017-04-05] MEDS: IPRATROPIUM BROM 0.5 MG/2.5ML INH SOL NEB SCH ×4 (01:05→19:02)
[2017-04-05] MEDS: GABAPENTIN 300 MG CAP PO SCH ×2 (10:00→22:10)
[2017-04-05] MEDS: PANTOPRAZOLE 40 MG TAB PO SCH (10:00)
[2017-04-05] MEDS: ENALAPRIL MALEATE 2.5 MG TAB PO SCH (10:00)
[2017-04-05] MEDS: NITROGLYCERIN 0.2MG/HR TOPICAL PATCH TD SCH (10:00)
[2017-04-05] MEDS: POTASSIUM CHL 20 Meq TABLET PO SCH (10:00)
[2017-04-05] MEDS: SOTALOL HCL 80 MG TAB PO SCH ×2 (10:00→22:09)
[2017-04-05] MEDS: MAGNESIUM OXIDE 400 MG TAB PO SCH ×2 (10:00→22:10)
[2017-04-05] MEDS: FUROSEMIDE 40 MG/4 ML VIAL IV SCH (10:57)
[2017-04-05] MEDS: LEVOFLOXACIN 500MG 100 ML IV SCH (10:59)
[2017-04-05] MEDS: ATORVASTATIN 20 MG TAB PO SCH (22:10)
[2017-04-06] MEDS: IPRATROPIUM BROM 0.5 MG/2.5ML INH SOL NEB SCH ×4 (00:24→19:12)
[2017-04-06] MEDS: DOBUTamine 1000MCG/ML 250 ML IV SCH ×3 (04:38→22:26)
[2017-04-06 04:59] VITALS: BP 98/48
[2017-04-06 08:00] VITALS: BP 97/49
[2017-04-06] MEDS: LEVOFLOXACIN 500MG 100 ML IV SCH (09:27)
[2017-04-06] MEDS: FUROSEMIDE 40 MG/4 ML VIAL IV SCH (09:27)
[2017-04-06] MEDS: MAGNESIUM OXIDE 400 MG TAB PO SCH ×2 (09:27→22:22)
[2017-04-06] MEDS: POTASSIUM CHL 20 Meq TABLET PO SCH (09:27)
[2017-04-06] MEDS: GABAPENTIN 300 MG CAP PO SCH ×2 (09:28→22:23)
[2017-04-06] MEDS: PANTOPRAZOLE 40 MG TAB PO SCH (09:28)
[2017-04-06] MEDS: ENALAPRIL MALEATE 2.5 MG TAB PO SCH (09:28)
[2017-04-06] MEDS: PHYTONADIONE (VIT K)10 MG/ML 1ML VIAL SUBCUT SCH (09:30)
[2017-04-06] MEDS: NITROGLYCERIN 0.2MG/HR TOPICAL PATCH TD SCH (09:31)
[2017-04-06] MEDS: SOTALOL HCL 80 MG TAB PO SCH ×2 (09:51→22:00)
[2017-04-06] MEDS: MORPHINE SULFATE 4 MG/ML SYRG IV PRN (11:09)
[2017-04-06 12:00] VITALS: BP 110/57
[2017-04-06 17:00] VITALS: BP 101/53
[2017-04-06 20:00] VITALS: BP 91/58
[2017-04-06 22:02] VITALS: BP 91/58
[2017-04-06] MEDS: ATORVASTATIN 20 MG TAB PO SCH (22:22)
[2017-04-07] VITALS (7 sets, daily range): BP systolic 105–116; BP diastolic 53–79
[2017-04-07] MEDS: IPRATROPIUM BROM 0.5 MG/2.5ML INH SOL NEB SCH ×4 (00:39→19:58)
[2017-04-07] MEDS: DOBUTamine 1000MCG/ML 250 ML IV SCH ×2 (06:56→16:15)
[2017-04-07] MEDS: SOTALOL HCL 80 MG TAB PO SCH ×2 (10:00→21:34)
[2017-04-07] MEDS: NITROGLYCERIN 0.2MG/HR TOPICAL PATCH TD SCH (10:00)
[2017-04-07] MEDS: POTASSIUM CHL 20 Meq TABLET PO SCH (10:34)
[2017-04-07] MEDS: PANTOPRAZOLE 40 MG TAB PO SCH (10:34)
[2017-04-07] MEDS: ENALAPRIL MALEATE 2.5 MG TAB PO SCH (10:36)
[2017-04-07] MEDS: GABAPENTIN 300 MG CAP PO SCH ×2 (10:37→21:35)
[2017-04-07] MEDS: FUROSEMIDE 40 MG/4 ML VIAL IV SCH (10:38)
[2017-04-07] MEDS: PHYTONADIONE (VIT K)10 MG/ML 1ML VIAL SUBCUT SCH (10:38)
[2017-04-07] MEDS: MAGNESIUM OXIDE 400 MG TAB PO SCH ×2 (10:39→21:35)
[2017-04-07] MEDS: LEVOFLOXACIN 500MG 100 ML IV SCH (10:39)
[2017-04-07] MEDS: ATORVASTATIN 20 MG TAB PO SCH (21:35)
[2017-04-08] VITALS (8 sets, daily range): BP systolic 108–121; BP diastolic 54–58
[2017-04-08] MEDS: DOBUTamine 1000MCG/ML 250 ML IV SCH ×3 (01:01→20:39)
[2017-04-08] MEDS: IPRATROPIUM BROM 0.5 MG/2.5ML INH SOL NEB SCH ×4 (01:05→19:40)
[2017-04-08 09:07] LABS: INR 1.01 (0.9-1.15); Partial Thromboplastin Time 31.3 sec (22.64-33.71)
[2017-04-08] MEDS: NITROGLYCERIN 0.2MG/HR TOPICAL PATCH TD SCH (10:00)
[2017-04-08] MEDS: LEVOFLOXACIN 500MG 100 ML IV SCH (10:00)
[2017-04-08] MEDS: MAGNESIUM OXIDE 400 MG TAB PO SCH ×2 (10:21→22:34)
[2017-04-08] MEDS: POTASSIUM CHL 20 Meq TABLET PO SCH (10:21)
[2017-04-08] MEDS: SOTALOL HCL 80 MG TAB PO SCH ×2 (10:21→22:34)
[2017-04-08] MEDS: GABAPENTIN 300 MG CAP PO SCH ×2 (10:21→22:34)
[2017-04-08] MEDS: ENALAPRIL MALEATE 2.5 MG TAB PO SCH (10:27)
[2017-04-08] MEDS: PANTOPRAZOLE 40 MG TAB PO SCH (10:28)
[2017-04-08] MEDS: FUROSEMIDE 40 MG/4 ML VIAL IV SCH (10:28)
[2017-04-08] MEDS: PHYTONADIONE (VIT K)10 MG/ML 1ML VIAL SUBCUT SCH (10:33)
[2017-04-08 17:02] LABS: Basophils # (auto) 0 uL; Basophils % (auto) 0.5 % (0.0-2.0); CONDITION Y; Eosinophils # (auto) 0 uL; Eosinophils % (auto) 0.6 % (0.0-7.0); Hematocrit 34.6 % (36.0-46.0); Hemoglobin 11.6 g/dL (12.2-16.2); Lymphocytes # (auto) 0.5 uL; Lymphocytes % (auto) 7.8 % (10.0-50.0); Mean Corpuscular Hemoglobin 31.6 pg (28.0-32.0); Mean Corpuscular Hgb Conc. 33.6 g/dL (32.0-36.0); Mean Corpuscular Volume 94.2 fL (80.0-100.0); Mean Platelet Volume 8.1 fL (7.4-10.4); Monocytes # (auto) 0.6 uL; Monocytes % (auto) 9.3 % (0.0-12.0); Neutrophils # (auto) 5.6 uL; Neutrophils % (auto) 81.8 % (37.0-80.0); Platelet Count (auto) 238 10^3/uL (140-450); Red Cell Distribution Width 15.6 % (11.6-16.0); White Blood Cell 6.8 10^3/uL (4.4-10.8)
[2017-04-08 17:20] LABS: Albumin 2.4 g/dL (3.4-5.0); Calcium 8.5 mg/dL (8.5-10.1); Potassium 3.5 mmol/L (3.5-5.1)
[2017-04-08 17:22] LABS: BUN/Creatinine Ratio 23.3
[2017-04-08 17:25] LABS: Bilirubin, Total 0.9 mg/dL (0.2-1.0); Total Protein 6.1 g/dL (6.4-8.2)
[2017-04-08] MEDS: ATORVASTATIN 20 MG TAB PO SCH (22:34)
[2017-04-09] VITALS (7 sets, daily range): BP systolic 96–117; BP diastolic 47–60
[2017-04-09] MEDS: IPRATROPIUM BROM 0.5 MG/2.5ML INH SOL NEB SCH ×4 (00:56→18:00)
[2017-04-09] MEDS: DOBUTamine 1000MCG/ML 250 ML IV SCH ×3 (05:31→23:17)
[2017-04-09 06:05] LABS: Urine Bilirubin Negative (Negative); Urine Blood Negative /uL (Negative); Urine Ca Oxalate Crystal FEW (None Seen); Urine Color Yellow (Yellow); Urine Glucose Normal (Normal); Urine Ketone Negative (Negative); Urine Mucus FEW (None Seen); Urine Nitrite Negative (Negative); Urine RBC 2 /hpf (0 - 4); Urine Squamous Epithelial Cell FEW /hpf (<5); Urine Urobilinogen Normal (Negative)
[2017-04-09] MEDS ORDERED: LIDOCAINE 1% HCL (LOCAL ANESTH.) INJ 20ML MDV ONE (09:18)
[2017-04-09] MEDS ORDERED: LIDOCAINE W/ EPINEPHRINE 1 % INJ 30ML ONE (09:18)
[2017-04-09] MEDS ORDERED: BUPIVACAINE W/ EPINEPH 0.25% INJ 50ML MDV ONE (09:18)
[2017-04-09] MEDS ORDERED: BUPIVACAINE 0.25% INJ 50ML VIAL ONE (09:19)
[2017-04-09] MEDS ORDERED: ROCURONIUM 10MG/ML 10ML VIAL IV ONE (09:39)
[2017-04-09] MEDS ORDERED: PROPOFOL 10 MG/ML 20 ML IV ONE (09:39)
[2017-04-09] MEDS ORDERED: ETOMIDATE (2MG/ML) 20ML VIAL IV ONE (09:40)
[2017-04-09] MEDS ORDERED: PHENYLEPHRINE HCL 10 MG/ML VL ONE (09:51)
[2017-04-09] MEDS ORDERED: NEOSTIGMINE 1 MG/ML INJ (10mg/10ML VIAL) ONE (10:46)
[2017-04-09] MEDS ORDERED: GLYCOPYRROLATE 0.2 MG/ML 1ML VIAL ONE ×2 (10:46→10:47)
[2017-04-09] MEDS ORDERED: ONDANSETRON HCL 4 MG/2 ML VIAL IV ONE (11:30)
[2017-04-09] MEDS: fentaNYL CITRATE 100 MCG/2 ML VL IV PRN ×4 (11:45→12:15)
[2017-04-09] MEDS: NITROGLYCERIN 0.2MG/HR TOPICAL PATCH TD SCH (13:00)
[2017-04-09] MEDS: FUROSEMIDE 40 MG/4 ML VIAL IV SCH (13:00)
[2017-04-09] MEDS: ENALAPRIL MALEATE 2.5 MG TAB PO SCH (13:00)
[2017-04-09] MEDS: SOTALOL HCL 80 MG TAB PO SCH ×2 (13:00→21:53)
[2017-04-09] MEDS: HYDROcodone-ACET 5/325MG TAB PO PRN (13:53)
[2017-04-09] MEDS: LEVOFLOXACIN 500MG 100 ML IV SCH (13:56)
[2017-04-09] MEDS: PHYTONADIONE (VIT K)10 MG/ML 1ML VIAL SUBCUT SCH (13:57)
[2017-04-09] MEDS: PANTOPRAZOLE 40 MG TAB PO SCH (13:58)
[2017-04-09] MEDS: MAGNESIUM OXIDE 400 MG TAB PO SCH ×2 (13:58→21:54)
[2017-04-09] MEDS: GABAPENTIN 300 MG CAP PO SCH ×2 (13:58→21:54)
[2017-04-09] MEDS: POTASSIUM CHL 20 Meq TABLET PO SCH (13:58)
[2017-04-09] MEDS: MORPHINE SULF INJ 2 MG/ML SYRINGE 1ML IV PRN ×3 (15:32→23:12)
[2017-04-09] MEDS: ATORVASTATIN 20 MG TAB PO SCH (21:56)
[2017-04-10] MEDS: IPRATROPIUM BROM 0.5 MG/2.5ML INH SOL NEB SCH ×4 (00:43→18:56)
[2017-04-10] MEDS: HYDROcodone-ACET 5/325MG TAB PO PRN (01:13)
[2017-04-10 05:00] VITALS: BP 123/48
[2017-04-10] MEDS: ALBUTEROL SULF 2.5 MG/0.5ML(0.5%) NEB SOLN NEB PRN ×2 (06:30→18:56)
[2017-04-10 08:00] VITALS: BP 119/53
[2017-04-10] MEDS: DOBUTamine 1000MCG/ML 250 ML IV SCH ×2 (08:15→18:11)
[2017-04-10 09:00] VITALS: BP 119/53
[2017-04-10] MEDS: PANTOPRAZOLE 40 MG TAB PO SCH (09:44)
[2017-04-10] MEDS: SOTALOL HCL 80 MG TAB PO SCH ×2 (09:44→21:31)
[2017-04-10] MEDS: GABAPENTIN 300 MG CAP PO SCH ×2 (09:44→21:32)
[2017-04-10] MEDS: FUROSEMIDE 40 MG/4 ML VIAL IV SCH (09:44)
[2017-04-10] MEDS: POTASSIUM CHL 20 Meq TABLET PO SCH (09:44)
[2017-04-10] MEDS: MAGNESIUM OXIDE 400 MG TAB PO SCH ×2 (09:44→21:32)
[2017-04-10] MEDS: PHYTONADIONE (VIT K)10 MG/ML 1ML VIAL SUBCUT SCH (09:45)
[2017-04-10] MEDS: NITROGLYCERIN 0.2MG/HR TOPICAL PATCH TD SCH (09:46)
[2017-04-10] MEDS: ENALAPRIL MALEATE 2.5 MG TAB PO SCH (09:46)
[2017-04-10 12:46] VITALS: BP 103/57
[2017-04-10 17:06] VITALS: BP 96/47
[2017-04-10] MEDS: MORPHINE SULF INJ 2 MG/ML SYRINGE 1ML IV PRN (20:47)
[2017-04-10 21:30] VITALS: BP 129/61
[2017-04-10] MEDS: ATORVASTATIN 20 MG TAB PO SCH (21:32)
[2017-04-11] VITALS (7 sets, daily range): BP systolic 94–119; BP diastolic 53–65
[2017-04-11] MEDS: DOBUTamine 1000MCG/ML 250 ML IV SCH ×3 (02:07→21:00)
[2017-04-11] MEDS: IPRATROPIUM BROM 0.5 MG/2.5ML INH SOL NEB SCH ×3 (05:56→19:23)
[2017-04-11] MEDS: FUROSEMIDE 40 MG/4 ML VIAL IV SCH (09:56)
[2017-04-11] MEDS: PANTOPRAZOLE 40 MG TAB PO SCH (09:57)
[2017-04-11] MEDS: SOTALOL HCL 80 MG TAB PO SCH ×2 (09:57→21:45)
[2017-04-11] MEDS: MAGNESIUM OXIDE 400 MG TAB PO SCH ×2 (09:57→21:46)
[2017-04-11] MEDS: GABAPENTIN 300 MG CAP PO SCH ×2 (09:57→21:46)
[2017-04-11] MEDS: POTASSIUM CHL 20 Meq TABLET PO SCH (09:57)
[2017-04-11] MEDS: PHYTONADIONE (VIT K)10 MG/ML 1ML VIAL SUBCUT SCH (09:58)
[2017-04-11] MEDS: ENALAPRIL MALEATE 2.5 MG TAB PO SCH (09:58)
[2017-04-11] MEDS: MORPHINE SULF INJ 2 MG/ML SYRINGE 1ML IV PRN ×2 (13:14→18:17)
[2017-04-11] MEDS: ATORVASTATIN 20 MG TAB PO SCH (21:46)
[2017-04-12 05:31] VITALS: BP 104/51
[2017-04-12] MEDS: DOBUTamine 1000MCG/ML 250 ML IV SCH ×5 (06:10→23:09)
[2017-04-12] MEDS: IPRATROPIUM BROM 0.5 MG/2.5ML INH SOL NEB SCH ×4 (07:06→20:13)
[2017-04-12 08:00] VITALS: BP 107/57
[2017-04-12] MEDS ORDERED: LIDOCAINE HCL 2 % INJ 2ML MPF ONE ×2 (09:54→12:12)
[2017-04-12] MEDS: FUROSEMIDE 40 MG/4 ML VIAL IV SCH (10:00)
[2017-04-12] MEDS: SOTALOL HCL 80 MG TAB PO SCH ×2 (10:00→21:21)
[2017-04-12] MEDS: ENALAPRIL MALEATE 2.5 MG TAB PO SCH (10:00)
[2017-04-12 10:03] VITALS: BP 107/57
[2017-04-12] MEDS: MAGNESIUM OXIDE 400 MG TAB PO SCH ×2 (10:07→21:23)
[2017-04-12] MEDS: PANTOPRAZOLE 40 MG TAB PO SCH (10:07)
[2017-04-12] MEDS: GABAPENTIN 300 MG CAP PO SCH ×2 (10:07→21:23)
[2017-04-12] MEDS: POTASSIUM CHL 20 Meq TABLET PO SCH (10:07)
[2017-04-12] MEDS: PHYTONADIONE (VIT K)10 MG/ML 1ML VIAL SUBCUT SCH (10:09)
[2017-04-12] MEDS ORDERED: MEPERIDINE HCL (25 MG/ML) 1ML VIAL IM ONE (12:30)
[2017-04-12] MEDS ORDERED: LIDOCAINE 2%HCL (LOCAL ANESTH.) INJ 20ML MDV IN ONE (12:30)
[2017-04-12 13:00] VITALS: BP 103/56
[2017-04-12] MEDS ORDERED: SODIUM CHLORIDE LOCK 30 ML ONE (13:19)
[2017-04-12] MEDS ORDERED: EPINEPHrine HCL 1 MG/1 ML AMP ONE ×2 (13:19→13:57)
[2017-04-12] MEDS ORDERED: BENZOCAINE (DENTAL) 20 % SPRAY 60ML MT ONE (13:19)
[2017-04-12] MEDS ORDERED: FLUMAZENIL 0.1 MG/ML INJ 10ML MDV IV ONE (13:20)
[2017-04-12] MEDS ORDERED: LIDOCAINE HCL 2% TOP JELLY 5ML TOP ONE (13:20)
[2017-04-12] MEDS ORDERED: LIDOCAINE 2%HCL (LOCAL ANESTH.) INJ 20ML MDV ONE (13:25)
[2017-04-12] MEDS: MIDAZOLAM HCL 5 MG/ML-1ML VIAL ONE ×5 (13:30→13:58)
[2017-04-12] MEDS ORDERED: MIDAZOLAM HCL 5 MG/ML-1ML VIAL ONE (13:57)
[2017-04-12 17:45] VITALS: BP 106/62
[2017-04-12] MEDS: MORPHINE SULF INJ 2 MG/ML SYRINGE 1ML IV PRN (19:41)
[2017-04-12] MEDS: ATORVASTATIN 20 MG TAB PO SCH (21:22)
[2017-04-12 22:00] VITALS: BP 112/55
[2017-04-13] MEDS: IPRATROPIUM BROM 0.5 MG/2.5ML INH SOL NEB SCH ×4 (00:41→19:24)
[2017-04-13 05:00] VITALS: BP_SYST 103; BP_SYST 117; BP_DIAS 52; BP_DIAS 86
[2017-04-13] MEDS: DOBUTamine 1000MCG/ML 250 ML IV SCH ×2 (05:42→16:57)
[2017-04-13] MEDS: HYDROcodone-ACET 5/325MG TAB PO PRN ×2 (08:18→17:00)
[2017-04-13 09:53] VITALS: BP 110/49
[2017-04-13] MEDS: SOTALOL HCL 80 MG TAB PO SCH ×2 (10:00→22:00)
[2017-04-13] MEDS: MAGNESIUM OXIDE 400 MG TAB PO SCH ×2 (10:13→22:12)
[2017-04-13] MEDS: GABAPENTIN 300 MG CAP PO SCH ×2 (10:14→22:12)
[2017-04-13] MEDS: PANTOPRAZOLE 40 MG TAB PO SCH (10:14)
[2017-04-13] MEDS: ENALAPRIL MALEATE 2.5 MG TAB PO SCH (10:14)
[2017-04-13] MEDS: POTASSIUM CHL 20 Meq TABLET PO SCH (10:14)
[2017-04-13] MEDS: FUROSEMIDE 40 MG/4 ML VIAL IV SCH (10:15)
[2017-04-13] MEDS: PHYTONADIONE (VIT K)10 MG/ML 1ML VIAL SUBCUT SCH (10:15)
[2017-04-13] MEDS: MORPHINE SULF INJ 2 MG/ML SYRINGE 1ML IV PRN ×2 (11:56→18:42)
[2017-04-13 13:20] VITALS: BP 111/61
[2017-04-13 17:15] VITALS: BP 109/59
[2017-04-13 21:30] VITALS: BP 105/43
[2017-04-13] MEDS: ATORVASTATIN 20 MG TAB PO SCH (22:11)
[2017-04-14] MEDS: DOBUTamine 1000MCG/ML 250 ML IV SCH ×3 (00:21→18:57)
[2017-04-14] MEDS: HYDROcodone-ACET 5/325MG TAB PO PRN (01:07)
[2017-04-14 04:51] VITALS: BP 98/47
[2017-04-14] MEDS: IPRATROPIUM BROM 0.5 MG/2.5ML INH SOL NEB SCH ×4 (05:45→19:13)
[2017-04-14 08:31] VITALS: BP 98/43
[2017-04-14] MEDS: ENALAPRIL MALEATE 2.5 MG TAB PO SCH (10:00)
[2017-04-14] MEDS: SOTALOL HCL 80 MG TAB PO SCH ×2 (10:00→22:16)
[2017-04-14] MEDS: FUROSEMIDE 40 MG/4 ML VIAL IV SCH (10:00)
[2017-04-14] MEDS: POTASSIUM CHL 20 Meq TABLET PO SCH (10:05)
[2017-04-14] MEDS: MAGNESIUM OXIDE 400 MG TAB PO SCH ×2 (10:05→22:17)
[2017-04-14] MEDS: PHYTONADIONE (VIT K)10 MG/ML 1ML VIAL SUBCUT SCH (10:05)
[2017-04-14] MEDS: GABAPENTIN 300 MG CAP PO SCH ×2 (10:05→22:17)
[2017-04-14] MEDS: PANTOPRAZOLE 40 MG TAB PO SCH (10:05)
[2017-04-14 12:00] VITALS: BP 103/37
[2017-04-14] MEDS ORDERED: SODIUM CHL 3% 500 ML IV ONE (12:00)
[2017-04-14] MEDS ORDERED: IOHEXOL 300 MG/ML 100ML BOTTLE IJ ONE (14:11)
[2017-04-14] MEDS: MORPHINE SULF INJ 2 MG/ML SYRINGE 1ML IV PRN (17:03)
[2017-04-14 17:13] VITALS: BP 106/51
[2017-04-14 21:06] VITALS: BP 103/44
[2017-04-14 21:34] VITALS: BP 103/44
[2017-04-14] MEDS: ATORVASTATIN 20 MG TAB PO SCH (22:17)
[2017-04-15] MEDS: MORPHINE SULF INJ 2 MG/ML SYRINGE 1ML IV PRN ×3 (01:44→22:17)
[2017-04-15] MEDS: DOBUTamine 1000MCG/ML 250 ML IV SCH ×3 (04:00→22:00)
[2017-04-15 05:30] VITALS: BP 105/50
[2017-04-15] MEDS: IPRATROPIUM BROM 0.5 MG/2.5ML INH SOL NEB SCH ×4 (07:29→21:02)
[2017-04-15 08:17] VITALS: BP 113/46
[2017-04-15] MEDS: FUROSEMIDE 40 MG/4 ML VIAL IV SCH (10:00)
[2017-04-15] MEDS: ENALAPRIL MALEATE 2.5 MG TAB PO SCH (10:00)
[2017-04-15] MEDS: SOTALOL HCL 80 MG TAB PO SCH ×2 (10:00→22:17)
[2017-04-15] MEDS: MAGNESIUM OXIDE 400 MG TAB PO SCH ×2 (10:38→22:17)
[2017-04-15] MEDS: PANTOPRAZOLE 40 MG TAB PO SCH (10:38)
[2017-04-15] MEDS: GABAPENTIN 300 MG CAP PO SCH ×2 (10:38→22:17)
[2017-04-15] MEDS: PHYTONADIONE (VIT K)10 MG/ML 1ML VIAL SUBCUT SCH (10:38)
[2017-04-15] MEDS: POTASSIUM CHL 20 Meq TABLET PO SCH (10:39)
[2017-04-15 12:33] VITALS: BP 107/41
[2017-04-15 17:00] VITALS: BP 107/64
[2017-04-15 22:00] VITALS: BP 119/53
[2017-04-15] MEDS: ATORVASTATIN 20 MG TAB PO SCH (22:17)
[2017-04-16] MEDS: MORPHINE SULF INJ 2 MG/ML SYRINGE 1ML IV PRN ×2 (03:55→20:27)
[2017-04-16 06:00] VITALS: BP 111/57
[2017-04-16] MEDS: IPRATROPIUM BROM 0.5 MG/2.5ML INH SOL NEB SCH ×4 (06:48→19:48)
[2017-04-16] MEDS: DOBUTamine 1000MCG/ML 250 ML IV SCH ×2 (08:34→14:05)
[2017-04-16] MEDS: PANTOPRAZOLE 40 MG TAB PO SCH (09:27)
[2017-04-16] MEDS: GABAPENTIN 300 MG CAP PO SCH ×2 (09:27→21:48)
[2017-04-16] MEDS: MAGNESIUM OXIDE 400 MG TAB PO SCH ×2 (09:27→22:11)
[2017-04-16] MEDS: POTASSIUM CHL 20 Meq TABLET PO SCH (09:27)
[2017-04-16] MEDS: FUROSEMIDE 40 MG/4 ML VIAL IV SCH (09:27)
[2017-04-16] MEDS: PHYTONADIONE (VIT K)10 MG/ML 1ML VIAL SUBCUT SCH (09:30)
[2017-04-16 09:37] VITALS: BP 105/57
[2017-04-16] MEDS: SOTALOL HCL 80 MG TAB PO SCH ×2 (10:00→22:10)
[2017-04-16] MEDS: ENALAPRIL MALEATE 2.5 MG TAB PO SCH (10:00)
[2017-04-16 14:26] VITALS: BP 112/57
[2017-04-16 17:17] VITALS: BP 117/53
[2017-04-16 20:00] VITALS: BP 118/59
[2017-04-16 22:06] VITALS: BP 118/59
[2017-04-16] MEDS: ATORVASTATIN 20 MG TAB PO SCH (22:10)
[2017-04-17] VITALS (7 sets, daily range): BP systolic 96–106; BP diastolic 42–52
[2017-04-17] MEDS: DOBUTamine 1000MCG/ML 250 ML IV SCH ×3 (01:03→18:06)
[2017-04-17] MEDS: PANTOPRAZOLE 40 MG TAB PO SCH (09:35)
[2017-04-17] MEDS: POTASSIUM CHL 20 Meq TABLET PO SCH (09:35)
[2017-04-17] MEDS: MAGNESIUM OXIDE 400 MG TAB PO SCH ×2 (09:35→21:43)
[2017-04-17] MEDS: FUROSEMIDE 40 MG/4 ML VIAL IV SCH (09:36)
[2017-04-17] MEDS: PHYTONADIONE (VIT K)10 MG/ML 1ML VIAL SUBCUT SCH (09:36)
[2017-04-17] MEDS: SOTALOL HCL 80 MG TAB PO SCH ×2 (09:37→21:37)
[2017-04-17] MEDS: ENALAPRIL MALEATE 2.5 MG TAB PO SCH (09:37)
[2017-04-17] MEDS: GABAPENTIN 300 MG CAP PO SCH ×2 (09:37→21:43)
[2017-04-17] MEDS: IPRATROPIUM BROM 0.5 MG/2.5ML INH SOL NEB SCH ×2 (19:51)
[2017-04-17] MEDS: MORPHINE SULF INJ 2 MG/ML SYRINGE 1ML IV PRN (20:14)
[2017-04-17] MEDS: ATORVASTATIN 20 MG TAB PO SCH (21:43)
[2017-04-18] MEDS: DOBUTamine 1000MCG/ML 250 ML IV SCH (02:17)
[2017-04-18 02:48] VITALS: BP 96/52
[2017-04-18 05:00] VITALS: BP 85/52
[2017-04-18] MEDS: ALBUTEROL SULF 2.5 MG/0.5ML(0.5%) NEB SOLN NEB PRN (05:57)
[2017-04-18] MEDS: IPRATROPIUM BROM 0.5 MG/2.5ML INH SOL NEB SCH ×4 (05:57→19:26)
[2017-04-18 08:00] VITALS: BP 104/52
[2017-04-18] MEDS: PANTOPRAZOLE 40 MG TAB PO SCH (09:56)
[2017-04-18] MEDS: GABAPENTIN 300 MG CAP PO SCH ×2 (09:56→21:43)
[2017-04-18] MEDS: MAGNESIUM OXIDE 400 MG TAB PO SCH ×2 (09:56→21:43)
[2017-04-18] MEDS: POTASSIUM CHL 20 Meq TABLET PO SCH (09:56)
[2017-04-18] MEDS: ENALAPRIL MALEATE 2.5 MG TAB PO SCH (10:00)
[2017-04-18] MEDS: FUROSEMIDE 40 MG/4 ML VIAL IV SCH ×2 (10:00→18:00)
[2017-04-18] MEDS: SOTALOL HCL 80 MG TAB PO SCH ×2 (10:00→21:41)
[2017-04-18] MEDS: PHYTONADIONE (VIT K)10 MG/ML 1ML VIAL SUBCUT SCH (10:02)
[2017-04-18] MEDS: HYDROcodone-ACET 5/325MG TAB PO PRN ×2 (11:05→18:02)
[2017-04-18 11:30] LABS: Basophils # (auto) 0.1 uL; Basophils % (auto) 0.6 % (0.0-2.0); CONDITION Y; Eosinophils # (auto) 0.1 uL; Eosinophils % (auto) 0.7 % (0.0-7.0); Hematocrit 36.3 % (36.0-46.0); Lymphocytes # (auto) 0.6 uL; Lymphocytes % (auto) 5.6 % (10.0-50.0); Mean Corpuscular Hemoglobin 31.6 pg (28.0-32.0); Mean Corpuscular Hgb Conc. 33.1 g/dL (32.0-36.0); Mean Corpuscular Volume 95.7 fL (80.0-100.0); Mean Platelet Volume 7.8 fL (7.4-10.4); Monocytes # (auto) 0.8 uL; Monocytes % (auto) 7.5 % (0.0-12.0); Neutrophils # (auto) 8.7 uL; Neutrophils % (auto) 85.6 % (37.0-80.0); Platelet Count (auto) 258 10^3/uL (140-450); Red Cell Distribution Width 15.7 % (11.6-16.0); White Blood Cell 10.2 10^3/uL (4.4-10.8)
[2017-04-18 11:48] LABS: Albumin 2.3 g/dL (3.4-5.0); BUN/Creatinine Ratio 21.7; Bilirubin, Total 0.8 mg/dL (0.2-1.0); Calcium 9.4 mg/dL (8.5-10.1); Potassium 4.6 mmol/L (3.5-5.1); Total Protein 6.2 g/dL (6.4-8.2)
[2017-04-18 20:00] VITALS: BP 101/55
[2017-04-18] MEDS: ATORVASTATIN 20 MG TAB PO SCH (21:42)
[2017-04-18] MEDS: MORPHINE SULF INJ 2 MG/ML SYRINGE 1ML IV PRN (21:43)
[2017-04-18 22:00] VITALS: BP 101/55
[2017-04-18 23:15] VITALS: BP 98/54
[2017-04-19] VITALS (7 sets, daily range): BP systolic 82–106; BP diastolic 43–54
[2017-04-19] MEDS: IPRATROPIUM BROM 0.5 MG/2.5ML INH SOL NEB SCH ×4 (07:02→18:00)
[2017-04-19] MEDS: ENALAPRIL MALEATE 2.5 MG TAB PO SCH (10:00)
[2017-04-19] MEDS: FUROSEMIDE 40 MG/4 ML VIAL IV SCH (10:28)
[2017-04-19] MEDS: PHYTONADIONE (VIT K)10 MG/ML 1ML VIAL SUBCUT SCH (10:28)
[2017-04-19] MEDS: MAGNESIUM OXIDE 400 MG TAB PO SCH ×2 (10:29→22:18)
[2017-04-19] MEDS: PANTOPRAZOLE 40 MG TAB PO SCH (10:29)
[2017-04-19] MEDS: POTASSIUM CHL 20 Meq TABLET PO SCH (10:29)
[2017-04-19] MEDS: SOTALOL HCL 80 MG TAB PO SCH ×2 (10:30→22:00)
[2017-04-19] MEDS: GABAPENTIN 300 MG CAP PO SCH ×2 (10:30→22:18)
[2017-04-19] MEDS: ATORVASTATIN 20 MG TAB PO SCH (22:17)
[2017-04-19] MEDS: HYDROcodone-ACET 5/325MG TAB PO PRN (22:18)
[2017-04-20] VITALS (7 sets, daily range): BP systolic 91–101; BP diastolic 36–55
[2017-04-20] MEDS: IPRATROPIUM BROM 0.5 MG/2.5ML INH SOL NEB SCH ×3 (06:46→11:58)
[2017-04-20] MEDS: SOTALOL HCL 80 MG TAB PO SCH ×2 (10:00→21:08)
[2017-04-20] MEDS: ENALAPRIL MALEATE 2.5 MG TAB PO SCH (10:00)
[2017-04-20] MEDS: GABAPENTIN 300 MG CAP PO SCH ×2 (10:59→21:10)
[2017-04-20] MEDS: POTASSIUM CHL 20 Meq TABLET PO SCH (11:00)
[2017-04-20] MEDS: MAGNESIUM OXIDE 400 MG TAB PO SCH ×2 (11:00→21:09)
[2017-04-20] MEDS: FUROSEMIDE 40 MG/4 ML VIAL IV SCH (11:01)
[2017-04-20] MEDS: PANTOPRAZOLE 40 MG TAB PO SCH (11:01)
[2017-04-20] MEDS: PHYTONADIONE (VIT K)10 MG/ML 1ML VIAL SUBCUT SCH (11:06)
[2017-04-20] MEDS: HYDROcodone-ACET 5/325MG TAB PO PRN (11:08)
[2017-04-20] MEDS ORDERED: ALPRAZolam 0.25 MG TAB PO PRN (14:45)
[2017-04-20] MEDS ORDERED: NALBUPHINE HCL 10 MG/1ml INJECTION IV PRN (14:45)
[2017-04-20] MEDS: MORPHINE SULF INJ 2 MG/ML SYRINGE 1ML IV PRN (16:06)
[2017-04-20] MEDS: BOOST PLUS 8 ounce PO SCH (21:09)
[2017-04-20] MEDS: ATORVASTATIN 20 MG TAB PO SCH (21:09)
[2017-04-21] VITALS (7 sets, daily range): BP systolic 92–108; BP diastolic 48–56
[2017-04-21 06:05] LABS: Basophils # (auto) 0 uL; Basophils % (auto) 0.3 % (0.0-2.0); CONDITION Y; Eosinophils # (auto) 0.1 uL; Eosinophils % (auto) 1.6 % (0.0-7.0); Hemoglobin 11.4 g/dL (12.2-16.2); Lymphocytes # (auto) 0.8 uL; Lymphocytes % (auto) 12.1 % (10.0-50.0); Mean Corpuscular Hemoglobin 31.8 pg (28.0-32.0); Mean Corpuscular Hgb Conc. 33.5 g/dL (32.0-36.0); Mean Platelet Volume 8.3 fL (7.4-10.4); Monocytes # (auto) 0.5 uL; Monocytes % (auto) 7.2 % (0.0-12.0); Neutrophils # (auto) 5.5 uL; Neutrophils % (auto) 78.8 % (37.0-80.0); Platelet Count (auto) 236 10^3/uL (140-450); Red Cell Distribution Width 15.9 % (11.6-16.0)
[2017-04-21 06:38] LABS: Albumin 2.1 g/dL (3.4-5.0); Bilirubin, Total 0.6 mg/dL (0.2-1.0); Calcium 8.5 mg/dL (8.5-10.1); Potassium 3.8 mmol/L (3.5-5.1); Total Protein 5.9 g/dL (6.4-8.2)
[2017-04-21] MEDS: MORPHINE SULF INJ 2 MG/ML SYRINGE 1ML IV PRN ×2 (09:42→15:04)
[2017-04-21] MEDS: PANTOPRAZOLE 40 MG TAB PO SCH (09:44)
[2017-04-21] MEDS: POTASSIUM CHL 20 Meq TABLET PO SCH (09:44)
[2017-04-21] MEDS: PHYTONADIONE (VIT K)10 MG/ML 1ML VIAL SUBCUT SCH (09:45)
[2017-04-21] MEDS: BOOST PLUS 8 ounce PO SCH ×2 (09:45→21:04)
[2017-04-21] MEDS: FUROSEMIDE 40 MG/4 ML VIAL IV SCH (09:45)
[2017-04-21] MEDS: ENALAPRIL MALEATE 2.5 MG TAB PO SCH (10:00)
[2017-04-21] MEDS ORDERED: NALBUPHINE HCL 10 MG/1ml INJECTION IV PRN (13:30)
[2017-04-21] MEDS: HYDROcodone-ACET 10/325MG TAB PO PRN (18:48)
[2017-04-22] MEDS: MORPHINE SULF INJ 2 MG/ML SYRINGE 1ML IV PRN ×4 (02:35→20:22)
[2017-04-22 05:16] VITALS: BP 103/56
[2017-04-22 06:25] LABS: Basophils # (auto) 0 uL; Basophils % (auto) 0.2 % (0.0-2.0); CONDITION Y; Eosinophils # (auto) 0.1 uL; Eosinophils % (auto) 1.8 % (0.0-7.0); Hemoglobin 11.2 g/dL (12.2-16.2); Lymphocytes # (auto) 0.9 uL; Lymphocytes % (auto) 13.2 % (10.0-50.0); Mean Corpuscular Hemoglobin 32.4 pg (28.0-32.0); Mean Corpuscular Volume 95.1 fL (80.0-100.0); Mean Platelet Volume 8.2 fL (7.4-10.4); Monocytes # (auto) 0.7 uL; Monocytes % (auto) 9.5 % (0.0-12.0); Neutrophils # (auto) 5.2 uL; Neutrophils % (auto) 75.3 % (37.0-80.0); Platelet Count (auto) 231 10^3/uL (140-450); Red Cell Distribution Width 15.7 % (11.6-16.0)
[2017-04-22 06:46] LABS: BUN/Creatinine Ratio 30.8; Calcium 8.9 mg/dL (8.5-10.1); Potassium 3.9 mmol/L (3.5-5.1)
[2017-04-22 08:00] VITALS: BP 99/58
[2017-04-22 09:00] VITALS: BP 99/58
[2017-04-22] MEDS: PHYTONADIONE (VIT K)10 MG/ML 1ML VIAL SUBCUT SCH (10:15)
[2017-04-22] MEDS: BOOST PLUS 8 ounce PO SCH ×2 (10:16→21:12)
[2017-04-22 13:00] VITALS: BP 114/63
[2017-04-22 17:00] VITALS: BP 115/63
[2017-04-22 22:02] VITALS: BP 117/60
[2017-04-23] MEDS: MORPHINE SULF INJ 2 MG/ML SYRINGE 1ML IV PRN ×3 (01:55→18:27)
[2017-04-23 05:16] VITALS: BP 100/62
[2017-04-23 08:00] VITALS: BP 113/60
[2017-04-23 08:30] VITALS: BP 113/60
[2017-04-23] MEDS: BOOST PLUS 8 ounce PO SCH ×2 (10:00→21:13)
[2017-04-23] MEDS: PHYTONADIONE (VIT K)10 MG/ML 1ML VIAL SUBCUT SCH (10:53)
[2017-04-23 13:00] VITALS: BP 111/61
[2017-04-23 16:58] VITALS: BP 101/62
[2017-04-23] MEDS: ALPRAZolam 0.5 MG TAB PO PRN (20:55)
[2017-04-23 22:00] VITALS: BP 121/72
[2017-04-24 05:30] VITALS: BP 117/57
[2017-04-24] MEDS: MORPHINE SULF INJ 2 MG/ML SYRINGE 1ML IV PRN ×2 (06:24→16:36)
[2017-04-24 08:00] VITALS: BP 110/63
[2017-04-24 09:05] VITALS: BP 110/63
[2017-04-24] MEDS: PHYTONADIONE (VIT K)10 MG/ML 1ML VIAL SUBCUT SCH (09:56)
[2017-04-24] MEDS: BOOST PLUS 8 ounce PO SCH ×2 (09:56→22:00)
[2017-04-24 14:22] VITALS: BP 123/76
[2017-04-24 16:50] VITALS: BP 124/61
[2017-04-24 22:00] VITALS: BP 156/85
[2017-04-25] MEDS: HYDROcodone-ACET 10/325MG TAB PO PRN (00:35)
[2017-04-25 05:29] VITALS: BP 118/62
[2017-04-25] MEDS: ALPRAZolam 0.5 MG TAB PO PRN (09:42)
[2017-04-25] MEDS: BOOST PLUS 8 ounce PO SCH ×2 (09:42→22:29)
[2017-04-25] MEDS ORDERED: ALBUTEROL SULF 2.5 MG/0.5ML(0.5%) NEB SOLN NEB PRN (10:00)
[2017-04-25] MEDS: ENALAPRIL MALEATE 2.5 MG TAB PO SCH (10:00)
[2017-04-25 10:02] VITALS: BP 115/59
[2017-04-25 10:18] VITALS: BP 115/59
[2017-04-25] MEDS: PANTOPRAZOLE 40 MG TAB PO SCH ×2 (10:24→22:28)
[2017-04-25] MEDS: MAGNESIUM OXIDE 400 MG TAB PO SCH ×2 (10:24→22:28)
[2017-04-25] MEDS: GABAPENTIN 300 MG CAP PO SCH ×2 (10:24→22:28)
[2017-04-25] MEDS: FUROSEMIDE 40 MG/4 ML VIAL IV SCH (10:25)
[2017-04-25] MEDS: POTASSIUM CHL 20 Meq TABLET PO SCH (10:25)
[2017-04-25 13:06] VITALS: BP 122/74
[2017-04-25 18:00] VITALS: BP 143/69
[2017-04-25] MEDS: ATORVASTATIN 20 MG TAB PO SCH (22:28)
[2017-04-25 23:03] VITALS: BP 129/66
[2017-04-26 05:00] VITALS: BP 119/65
[2017-04-26 05:39] LABS: Albumin 2.2 g/dL (3.4-5.0); Basophils # (auto) 0 uL; Basophils % (auto) 0.4 % (0.0-2.0); CONDITION Y; Calcium 8.5 mg/dL (8.5-10.1); Eosinophils # (auto) 0.1 uL; Eosinophils % (auto) 1.5 % (0.0-7.0); Hematocrit 35.6 % (36.0-46.0); Hemoglobin 11.8 g/dL (12.2-16.2); Lymphocytes # (auto) 0.9 uL; Lymphocytes % (auto) 13.1 % (10.0-50.0); Mean Corpuscular Hemoglobin 31.7 pg (28.0-32.0); Mean Corpuscular Hgb Conc. 33.2 g/dL (32.0-36.0); Mean Corpuscular Volume 95.4 fL (80.0-100.0); Mean Platelet Volume 8.3 fL (7.4-10.4); Monocytes # (auto) 0.7 uL; Monocytes % (auto) 10.2 % (0.0-12.0); Neutrophils # (auto) 5.1 uL; Neutrophils % (auto) 74.8 % (37.0-80.0); Platelet Count (auto) 250 10^3/uL (140-450); Potassium 3.6 mmol/L (3.5-5.1); Red Cell Distribution Width 16.2 % (11.6-16.0); White Blood Cell 6.8 10^3/uL (4.4-10.8)
[2017-04-26 05:40] LABS: BUN/Creatinine Ratio 32.6
[2017-04-26 06:02] LABS: Bilirubin, Total 0.5 mg/dL (0.2-1.0); Total Protein 5.8 g/dL (6.4-8.2)
[2017-04-26 09:00] VITALS: BP 120/64
[2017-04-26] MEDS: BOOST PLUS 8 ounce PO SCH ×2 (10:00→21:46)
[2017-04-26] MEDS: MAGNESIUM OXIDE 400 MG TAB PO SCH ×2 (10:48→21:46)
[2017-04-26] MEDS: GABAPENTIN 300 MG CAP PO SCH ×2 (10:48→21:44)
[2017-04-26] MEDS: POTASSIUM CHL 20 Meq TABLET PO SCH (10:48)
[2017-04-26] MEDS: PANTOPRAZOLE 40 MG TAB PO SCH ×2 (10:48→21:44)
[2017-04-26] MEDS: ENALAPRIL MALEATE 2.5 MG TAB PO SCH (10:49)
[2017-04-26] MEDS: FUROSEMIDE 40 MG/4 ML VIAL IV SCH (11:20)
[2017-04-26 13:00] VITALS: BP 120/63
[2017-04-26] MEDS: HYDROcodone-ACET 10/325MG TAB PO PRN ×2 (14:01→21:12)
[2017-04-26] MEDS ORDERED: MULTIPLE VITAMIN TAB PO ONE ×2 (15:15→22:00)
[2017-04-26] MEDS ORDERED: ASCORBIC ACID 500 MG TAB PO ONE (15:15)
[2017-04-26 17:00] VITALS: BP 110/61
[2017-04-26 21:09] VITALS: BP 126/67
[2017-04-26 21:20] VITALS: BP 101/62
[2017-04-26] MEDS: ATORVASTATIN 20 MG TAB PO SCH (21:45)
[2017-04-26] MEDS: ASCORBIC ACID 500 MG TAB PO SCH (21:46)
[2017-04-27 01:54] VITALS: BP 101/62
[2017-04-27 05:18] VITALS: BP 97/57
[2017-04-27 08:11] VITALS: BP 96/53
[2017-04-27] MEDS: FUROSEMIDE 40 MG/4 ML VIAL IV SCH (10:00)
[2017-04-27] MEDS: ENALAPRIL MALEATE 2.5 MG TAB PO SCH (10:00)
[2017-04-27] MEDS: BOOST PLUS 8 ounce PO SCH (10:00)
[2017-04-27] MEDS ORDERED: MULTIPLE VITAMIN TAB PO SCH (10:00)
[2017-04-27] MEDS: POTASSIUM CHL 20 Meq TABLET PO SCH (10:40)
[2017-04-27] MEDS: ASCORBIC ACID 500 MG TAB PO SCH (10:40)
[2017-04-27] MEDS: MAGNESIUM OXIDE 400 MG TAB PO SCH (10:40)
[2017-04-27] MEDS: GABAPENTIN 300 MG CAP PO SCH (10:40)
[2017-04-27] MEDS: PANTOPRAZOLE 40 MG TAB PO SCH (10:40)
[2017-04-27] MEDS: HYDROcodone-ACET 10/325MG TAB PO PRN (10:54)
[2017-04-27 12:00] VITALS: BP 94/52
[2017-04-27 15:45] VITALS: BP 94/52
== END 2017-04-27 18:53 | DRG 166 ==
LOC: ER 08:30 → EDBD 08:30 → TELE 08:31 → TELE-E-ADS 11:14 → TELE-WESTW 16:45
PROVIDERS: ADMIT Internal Medicine; ATTEND Internal Medicine Cardiovascular Disease
PROC: 30233L1 Transfusion of Nonautologous Fresh Plasma into Peripheral Vein, Percutaneous Approach (ICD-10-PCS; 2017-04-03)
PROC: 30233K1 Transfusion of Nonautologous Frozen Plasma into Peripheral Vein, Percutaneous Approach (ICD-10-PCS; 2017-04-03)
PROC: 0W9B3ZZ Drainage of Left Pleural Cavity, Percutaneous Approach (ICD-10-PCS; 2017-04-04)
PROC: 0W9B40Z Drainage of Left Pleural Cavity with Drainage Device, Percutaneous Endoscopic Approach (ICD-10-PCS; principal; 2017-04-09 09:33)
PROC: 0BB78ZX Excision of Left Main Bronchus, Via Natural or Artificial Opening Endoscopic, Diagnostic (ICD-10-PCS; 2017-04-13)
DX: C34.92 Malignant neoplasm of unspecified part of left bronchus or lung (principal); I50.33 Acute on chronic diastolic (congestive) heart failure; J18.9 Pneumonia, unspecified organism; E87.3 Alkalosis; J91.0 Malignant pleural effusion; I27.0 Primary pulmonary hypertension; D68.9 Coagulation defect, unspecified; I11.0 Hypertensive heart disease with heart failure; J96.10 Chronic respiratory failure, unspecified whether with hypoxia or hypercapnia; E87.1 Hypo-osmolality and hyponatremia; J98.19 Other pulmonary collapse; Z79.01 Long term (current) use of anticoagulants; E27.8 Other specified disorders of adrenal gland; D64.9 Anemia, unspecified; I48.91 Unspecified atrial fibrillation; K21.9 Gastro-esophageal reflux disease without esophagitis; E78.5 Hyperlipidemia, unspecified; E66.9 Obesity, unspecified; M19.90 Unspecified osteoarthritis, unspecified site; F32.9 Major depressive disorder, single episode, unspecified; I25.10 Atherosclerotic heart disease of native coronary artery without angina pectoris; J43.2 Centrilobular emphysema; K44.9 Diaphragmatic hernia without obstruction or gangrene; K57.90 Diverticulosis of intestine, part unspecified, without perforation or abscess without bleeding; N28.9 Disorder of kidney and ureter, unspecified; Z66 Do not resuscitate; Z80.9 Family history of malignant neoplasm, unspecified; Z82.49 Family history of ischemic heart disease and other diseases of the circulatory system; Z98.49 Cataract extraction status, unspecified eye; I25.2 Old myocardial infarction; Z90.710 Acquired absence of both cervix and uterus; Z99.81 Dependence on supplemental oxygen; Z95.5 Presence of coronary angioplasty implant and graft; Z90.49 Acquired absence of other specified parts of digestive tract; Z88.0 Allergy status to penicillin
CPT/HCPCS: 31625; 32555; 36415; 51702; 70470; 71010; 71020; 71250; 74177; 76604; 76942; 78306; 80048; 80053; 80162; 81001; 82040; 82550; 83735; 83880; 84443; 84484; 85025; 85610; 85730; 86850; 86900; 86901; 87081; 93005; 94640; 94660; 96365; 96375; 96376; 97110; 97116; 97163; 97530; 99291; J0171; J1956; J2001; J2250; J2405; J2704; J3430; J3490